=== PATIENT | female | born 1970 | race Caucasian/White ===

== ENCOUNTER → 2017-01-26 | Outpatient (CLI) | payer MEDICARE, OTHER ==
--- NOTE | 2017-01-29 09:47 | MM ---
Reason for exam: screening (asymptomatic). Last mammogram was performed 3 years and 3 months ago. Physical Findings: A clinical breast exam by your physician is recommended on an annual basis and results should be correlated with mammographic findings. MG Screening Mammo w CAD Bilateral CC and MLO view(s) were taken. Prior study comparison: November 05, 2013, bilateral MG screening mammo w CAD. The breast tissue is extremely dense which could obscure a lesion on mammography. No significant changes when compared with prior studies. ASSESSMENT: Benign, BI-RAD 2 RECOMMENDATION: Routine screening mammogram of both breasts in 1 year.
== END | disposition home or self-care (01) ==
LOC: RADMAMWWP 09:10
PROVIDERS: ATTEND Family Medicine
DX: Z12.31 Encounter for screening mammogram for malignant neoplasm of breast (principal)

== ENCOUNTER → 2018-01-30 | Outpatient (CLI) | payer MEDICARE, OTHER ==
--- NOTE | 2018-01-31 14:16 | MM ---
Reason for exam: screening (asymptomatic). Last mammogram was performed 1 year ago. Physical Findings: A clinical breast exam by your physician is recommended on an annual basis and results should be correlated with mammographic findings. MG Screening Mammo w CAD Bilateral CC and MLO view(s) were taken. Prior study comparison: January 26, 2017, bilateral MG screening mammo w CAD. November 05, 2013, bilateral MG screening mammo w CAD. The breast tissue is extremely dense which could obscure a lesion on mammography. No significant changes when compared with prior studies. ASSESSMENT: Negative, BI-RAD 1 RECOMMENDATION: Routine screening mammogram of both breasts in 1 year.
== END | disposition home or self-care (01) ==
LOC: RADMAMWWP 12:30 → EEVIPCON 12:40
PROVIDERS: ATTEND Family Medicine
DX: Z12.31 Encounter for screening mammogram for malignant neoplasm of breast (principal)
CPT/HCPCS: 77067

== ENCOUNTER 2019-08-18 08:44 | Emergency (ER) | payer MEDICARE, OTHER ==
[2019-08-18 08:53] VITALS: TEMP 99.4
[2019-08-18] MEDS ORDERED: SODIUM CHLORIDE 0.9% 1,000 ML IV STA (09:12)
[2019-08-18] MEDS ORDERED: ONDANSETRON 4 MG/2 ML VIAL IVP STA (09:12)
[2019-08-18] MEDS ORDERED: KETOROLAC 30 MG/ML 1 ML VIAL IVP STA (09:13)
--- NOTE | 2019-08-18 09:14 | ED ---
Abdominal Pain HPI - General Chief Complaint: Abdominal Pain Stated Complaint: fever, abd pain, weakness Time Seen by Provider: 08/18/19 09:00 Source: patient, family Mode of arrival: wheelchair Limitations: altered mental status - History of Present Illness Initial Comments: Patient is a 49-year-old female with history of mental retarded patient presents to emergency Department with a chief complaint of abdominal pain. Mother states she developed abdominal pain sometime yesterday. States she was complaining of sharp left flank pains and had difficulty getting in and out of the bathtub. Mother states the patient has problems with constipation and takes stool softeners. Mother states she gave the patient a laxative which helped alleviate quite a bit of stool. However, states the patient is complaining of some sharp pains. Mother does report occasional abdominal bloating but states that is usually related to her menstrual cycle. Mother denies any hematuria, hematochezia or melena. Mother states the patient is not complaining of any p ainful urination. Patient is not able to describe her localized pain. - Related Data Previous Rx's Medication Instructions Recorded Ranitidine HCl [Zantac] 150 mg PO BID #14 tab 01/11/15 Ranitidine HCl [Zantac] 150 mg PO BID #14 tablet 08/18/19 Allergies Allergy/AdvReac Type Severity Reaction Status Date / Time No Known Allergies Allergy Verified 08/18/19 08:53 Review of Systems ROS Statement: Those systems with pertinent positive or pertinent negative responses have been documented in the HPI. ROS Other: All systems not noted in ROS Statement are negative. Past Medical History Additional Past Medical History / Comment(s): mentally retarded History of Any Multi-Drug Resistant Organisms: None Reported Past Surgical History: No Surgical Hx Reported Past Psychological History: No Psychological Hx Reported Smoking Status: Never smoker Past Alcohol Use History: None Reported Past Drug Use History: None Reported General Exam Limitations: altered mental status General appearance: alert, in no apparent distress Head exam: Present: atraumatic, normocephalic, normal inspection Eye exam: Present: normal appearance (Strabismus) Pupils: Present: normal accommodation ENT exam: Present: normal exam, mucous membranes moist Neck exam: Present: normal inspection, full ROM Respiratory exam: Present: normal lung sounds bilaterally Cardiovascular Exam: Present: regular rate, normal rhythm, normal heart sounds GI/Abdominal exam: Present: soft, tenderness (Left flank region, luq), normal bowel sounds. Absent: distended, guarding, rebound Extremities exam: Present: normal inspection, normal capillary refill, other (+2 ulnar and radial pulses bilaterally.) Back exam: Present: normal inspection, full ROM, tenderness, CVA tenderness (L) Neurological exam: Present: alert, oriented X3 Psychiatric exam: Present: normal affect (Mental retardation) Skin exam: Present: warm, dry, intact, normal color Course Vital Signs 08/18/19 08/18/19 08:50 10:28 Temperature 99.4 F Pulse Rate 138 H 76 Respiratory 18 16 Rate Blood Pressure 138/104 119/76 O2 Sat by Pulse 100 Oximetry Medical Decision Making - Medical Decision Making Patient is a 49-year-old female with history of mental rotation presents emergency [facility] chief complaint of abdominal pain. Mother present as a history. On exam patient does have some left lower quadrant left flank pain along with left CVA tenderness. Difficult to elicit a thorough physical examination due to patient's condition. CBC CMP and UA are unremarkable. CT of abdomen and pelvis obtained showing moderate bladder wall thickening but it does not correlate for cystitis considering patient is not symptomatic according to the mother. UA shows no signs of urinary tract infections. UA culture pending. Patient does have left sided colonic diverticulosis which is expected considering she has recurrent bouts of constipation. I suspect the patient has good. She does of occasional bloating which the mom suspects is usually related to her menstrual cycle. Patient will be treated with a seven-day course of antacids. Return parameters were thoroughly discussed mother was understanding and agreeable. She was advised to follow primary care. Case discussed with physician. - Lab Data Result diagrams: 08/18/19 09:00 08/18/19 09:00 Lab Results 08/18/19 08/18/19 08/18/19 Range/Units 09:00 09:00 09:15 WBC 9.1 (3.8-10.6) k/uL RBC 4.64 (3.80-5.40) m/uL Hgb 13.5 (11.4-16.0) gm/dL Hct 41.4 (34.0-46.0) % MCV 89.4 (80.0-100.0) fL MCH 29.0 (25.0-35.0) pg MCHC 32.5 (31.0-37.0) g/dL RDW 12.8 (11.5-15.5) % Plt Count 323 (150-450) k/uL Neutrophils % 83 % Lymphocytes % 12 % Monocytes % 4 % Eosinophils % 1 % Basophils % 0 % Neutrophils # 7.5 (1.3-7.7) k/uL Lymphocytes # 1.1 (1.0-4.8) k/uL Monocytes # 0.3 (0-1.0) k/uL Eosinophils # 0.1 (0-0.7) k/uL Basophils # 0.0 (0-0.2) k/uL Sodium 137 (137-145) mmol/L Potassium 4.3 (3.5-5.1) mmol/L Chloride 108 H (98-107) mmol/L Carbon Dioxide 17 L (22-30) mmol/L Anion Gap 12 mmol/L BUN 13 (7-17) mg/dL Creatinine 0.74 (0.52-1.04) mg/dL Est GFR (CKD-EPI)AfAm >90 (>60 ml/min/1.73 sqM) Est GFR (CKD-EPI)NonAf >90 (>60 ml/min/1.73 sqM) Glucose 111 H (74-99) mg/dL Calcium 9.6 (8.4-10.2) mg/dL Total Bilirubin 0.6 (0.2-1.3) mg/dL AST 27 (14-36) U/L ALT 18 (4-34) U/L Alkaline Phosphatase 82 (38-126) U/L Total Protein 8.3 H (6.3-8.2) g/dL Albumin 4.6 (3.5-5.0) g/dL Amylase 56 (30-110) U/L Lipase 82 (23-300) U/L Urine Color Yellow Urine Appearance Cloudy H (Clear) Urine pH 5.5 (5.0-8.0) Ur Specific [place] 1.019 (1.001-1.035) Urine Protein Negative (Negative) Urine Glucose (UA) Negative (Negative) Urine Ketones 1+ H (Negative) Urine Blood Negative (Negative) Urine Nitrite Negative (Negative) Urine Bilirubin Negative (Negative) Urine Urobilinogen <2.0 (<2.0) mg/dL Ur Leukocyte Esterase Negative (Negative) Urine RBC 2 (0-5) /hpf Urine WBC 2 (0-5) /hpf Ur Squamous Epith Cells 12 H (0-4) /hpf Urine Mucus Few H (None) /hpf Disposition Clinical Impression: Abdominal pain, Abdominal bloating Disposition: HOME SELF-CARE Condition: Stable Instructions (If sedation given, give patient instructions): Abdominal Pain (ED) Additional Instructions: Please take prescribed medication as directed. Follow-up with primary care. Return to emergency department if symptoms worsen. Prescriptions: Ranitidine HCl [Zantac] 150 mg PO BID #14 tablet Is patient prescribed a controlled substance at d/c from ED?: No Referrals: Jt Quinteros DO [Primary Care Provider] - 1-2 days Time of Disposition: 11:57
[2019-08-18 10:03] LABS: ALT 18 U/L (4-34); African American GFR (CKD) >90 (>60 ml/min/1.73 sqM); Albumin 4.6 g/dL (3.5-5.0); Amylase 56 U/L (30-110); Anion Gap 12 mmol/L; Blood Urea Nitrogen 13 mg/dL (7-17); Calcium 9.6 mg/dL (8.4-10.2); Carbon Dioxide 17 mmol/L (22-30); Chloride 108 mmol/L (98-107); Glucose 111 mg/dL (74-99); Non-African American GFR(CKD) >90 (>60 ml/min/1.73 sqM); Sodium 137 mmol/L (137-145); Total Bilirubin 0.6 mg/dL (0.2-1.3); Total Protein 8.3 g/dL (6.3-8.2)
[2019-08-18 10:07] LABS: AST 27 U/L (14-36); Alkaline Phosphatase 82 U/L (38-126); Potassium 4.3 mmol/L (3.5-5.1)
[2019-08-18 10:20] LABS: Basophils % (A) 0 %; Eosinophils # (A) 0.1 k/uL (0-0.7); Eosinophils % (A) 1 %; HCT 41.4 % (34.0-46.0); HGB 13.5 gm/dL (11.4-16.0); Lymphocytes # (A) 1.1 k/uL (1.0-4.8); Lymphocytes % (A) 12 %; MCHC 32.5 g/dL (31.0-37.0); MCV 89.4 fL (80.0-100.0); Mean Platelet Volume 7.5; Monocytes # (A) 0.3 k/uL (0-1.0); Monocytes % (A) 4 %; Neutrophils # (A) 7.5 k/uL (1.3-7.7); Neutrophils % (A) 83 %; Platelet Count 323 k/uL (150-450); RBC 4.64 m/uL (3.80-5.40); RDW 12.8 % (11.5-15.5); WBC 9.1 k/uL (3.8-10.6)
[2019-08-18 10:29] VITALS: PULSE 76; RESP 16
[2019-08-18 11:03] LABS: Appearance,Urine Cloudy (Clear); Bilirubin,Urine Negative (Negative); Blood,Urine Negative (Negative); Color,Urine Yellow; Glucose,Urine (UA) Negative (Negative); Ketones,Urine 1+ (Negative); Leukocyte Esterase,Urine Negative (Negative); Mucus,Urine Few /hpf; Nitrite,Urine Negative (Negative); PH, Urine 5.5 (5.0-8.0); Protein,Urine Negative (Negative); RBC,Urine 2 /hpf (0-5); Specific Gravity,Urine 1.019 (1.001-1.035); Squamous Epithelial Cell,Urine 12 /hpf (0-4); Urobilinogen,Urine <2.0 mg/dL (<2.0); WBC,Urine 2 /hpf (0-5)
--- NOTE | 2019-08-18 11:11 | CT ---
EXAMINATION TYPE: CT abdomen pelvis w con DATE OF EXAM: 08/18/2019 COMPARISON: 01/11/2015 HISTORY: 49-year-old female with Left lower quadrant pain. TECHNIQUE: Contiguous axial scanning of the abdomen and pelvis following administration of 100 ml Iso farzad 300 IV contrast. Delayed images through the kidneys and coronal/sagittal reconstructions perform ed. CT DLP: 701.8 mGycm Automated exposure control for dose reduction was used. FINDINGS: Heart normal size without pericardial effusion. Breathing motion artifact at the lung bases. No pleur al effusion. A new 1.0 cm hypodensity mid liver, likely cyst. A couple tiny cysts in the right liver lobe are unch anged. Portal venous system is patent. No biliary ductal dilatation. Gallbladder, adrenal glands, left kidney, spleen, and pancreas appear within normal limits. Stable 6 mm cortical cyst lower pole right kidney. No dilated small bowel, free fluid, or free air. Scattered nonenlarged mesenteric lymph nodes. No mes enteric or retroperitoneal lymphadenopathy. Normal appendix. High riding cecum. No significant stool burden. Left-sided colonic diverticulosis, g reatest in the sigmoid colon. No perisplenic inflammatory change seen. Moderate circumferential bladder wall thickening with mild perivesicular fat stranding. Uterus anteve rted with arcuate configuration. Both ovaries were visualized. A 1.4 cm dominant follicle or function al cyst of the left ovary. Trace cul-de-sac free fluid likely physiologic. No pelvic lymphadenopathy seen. 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 No osseous destructive process . IMPRESSION: 1. Moderate bladder wall thickening. Suggestion of mild surrounding inflammation. Correlate for cysti tis. 2. Left-sided colonic diverticulosis, greatest in the sigmoid colon. No convincing evidence for acute diverticulitis at this time. 3. Trace cul-de-sac free fluid likely physiologic.
[2019-08-18 12:15] VITALS: BP 132/76
== END 2019-08-18 12:13 | disposition home or self-care (01) ==
LOC: EC 08:44
DX: K57.90 Diverticulosis of intestine, part unspecified, without perforation or abscess without bleeding (principal); K59.00 Constipation, unspecified; R53.1 Weakness
CPT/HCPCS: 36415; 80053; 82150; 83690; 85025; 81001; 74177; 99284; 96374; 96375; 96361; J2405; J1885; Q9967

== ENCOUNTER 2021-04-30 10:16 | Emergency (ER) | payer MEDICARE, OTHER ==
[2021-04-30 10:27] VITALS: RESP 16; TEMP 98.5
[2021-04-30] MEDS ORDERED: SODIUM CHLORIDE 0.9% 1,000 ML IV ONE (11:24)
[2021-04-30 12:11] LABS: Basophils % (A) 0 %; Eosinophils # (A) 0.1 k/uL (0-0.7); Eosinophils % (A) 1 %; HCT 40.2 % (34.0-46.0); HGB 13.5 gm/dL (11.4-16.0); Lymphocytes # (A) 0.9 k/uL (1.0-4.8); Lymphocytes % (A) 7 %; MCH 30.4 pg (25.0-35.0); MCHC 33.7 g/dL (31.0-37.0); MCV 90.2 fL (80.0-100.0); Mean Platelet Volume 7.5; Monocytes # (A) 0.6 k/uL (0-1.0); Monocytes % (A) 4 %; Neutrophils # (A) 11.3 k/uL (1.3-7.7); Neutrophils % (A) 87 %; Platelet Count 454 k/uL (150-450); RBC 4.46 m/uL (3.80-5.40); RDW 13.2 % (11.5-15.5)
--- NOTE | 2021-04-30 12:13 | CT ---
EXAMINATION TYPE: CT brain wo con DATE OF EXAM: 04/30/2021 COMPARISON: None HISTORY: 51-year-old female confusion, Altered mental status TECHNIQUE: Examination was done in axial plane without intravenous contrast. Coronal and sagittal r econstructions performed. CT DLP: 1261.4 mGycm Automated exposure control for dose reduction was used. FINDINGS: There is no evidence of acute intracranial hemorrhage, acute ischemic changes, mass, mass-effect, or extra-axial fluid collection. There is no effacement of cerebral sulci or basal subarachnoid cister ns. There is no hydrocephalus. There is no midline shift. Paredes-white matter distinction is preserv ed. The patient appears to be myopic. Cerumen left external auditory canal. Paranasal sinuses and mastoid air cells are well pneumatized. IMPRESSION: No acute intracranial abnormality seen.
--- NOTE | 2021-04-30 12:16 | XR ---
EXAMINATION TYPE: XR chest 2V DATE OF EXAM: 04/30/2021 COMPARISON: None HISTORY: 51-year-old female confusion, altered mental status TECHNIQUE: AP and lateral views FINDINGS: Heart borderline enlarged. Mild hyperinflation. Some focal patchy posterior basilar opacity on the la teral view. No other consolidation or pleural effusion seen. IMPRESSION: 1. Borderline heart size. 2. Some focal atelectasis versus early infiltrate posterior base on the lateral view.
[2021-04-30 12:23] LABS: Partial Thromboplastin Time 22.6 sec (22.0-30.0); Prothrombin Time 10.8 sec (9.0-12.0)
[2021-04-30 12:28] LABS: Albumin 5.2 g/dL (3.5-5.0); Calcium 10.4 mg/dL (8.4-10.2); Potassium 3.9 mmol/L (3.5-5.1); Total Bilirubin 0.6 mg/dL (0.2-1.3); Total Protein 8.7 g/dL (6.3-8.2)
--- NOTE | 2021-04-30 13:33 | ED ---
Altered Mental Status HPI - General Chief Complaint: Altered Mental Status Stated Complaint: not acting right Time Seen by Provider: 04/30/21 11:12 Source: patient, family, RN notes reviewed Mode of arrival: ambulatory Limitations: no limitations - History of Present Illness Initial Comments: Patient is a 51-year-old female that presents to the emergency department with caretaker grounds who notes that she started her vessel cycle this morning and has been confused for the past several days. Patient was otherwise a well-appearing while sitting up in bed interacting while during the exam and interview. Programmable Logic Controller Assembler notes that she is also complaining of mouth pain. Patient was able to answer questions appropriately. Programmable Logic Controller Assembler notes that patient is at her baseline mental status in the ER. Programmable Logic Controller Assembler notes that he was concerned for possible urinary tract infection at this time. Patient denied any chest pain shortness of breath headache nausea vomiting diarrhea constipation fever fatigue chills. - Related Data Home Medications Medication Instructions Recorded Confirmed Cholecalciferol [Vitamin D3 (25 25 mcg PO DAILY 04/30/21 04/30/21 Mcg = 1000 Iu)] Docusate [Colace] 200 mg PO DAILY 04/30/21 04/30/21 Previous Rx's Medication Instructions Recorded Cephalexin [Keflex] 500 mg PO Q6HR #40 cap 04/30/21 traZODone HCL [Desyrel] 50 mg PO HS 5 Days #5 tab 04/30/21 Allergies Allergy/AdvReac Type Severity Reaction Status Date / Time No Known Allergies Allergy Verified 04/30/21 12:10 Review of Systems ROS Statement: Those systems with pertinent positive or pertinent negative responses have been documented in the HPI. ROS Other: All systems not noted in ROS Statement are negative. Past Medical History Additional Past Medical History / Comment(s): mentally retarded History of Any Multi-Drug Resistant Organisms: None Reported Past Surgical History: No Surgical Hx Reported Past Psychological History: No Psychological Hx Reported Smoking Status: Never smoker Past Alcohol Use History: None Reported Past Drug Use History: None Reported General Exam Limitations: no limitations General appearance: alert, in no apparent distress Head exam: Present: atraumatic, normocephalic, normal inspection Eye exam: Present: normal appearance, PERRL, EOMI. Absent: scleral icterus, conjunctival injection, periorbital swelling ENT exam: Present: normal exam, mucous membranes moist Neck exam: Present: normal inspection Respiratory exam: Present: normal lung sounds bilaterally. Absent: respiratory distress, wheezes, rales, rhonchi, stridor Cardiovascular Exam: Present: regular rate, normal rhythm, normal heart sounds. Absent: systolic murmur, diastolic murmur, rubs, gallop, clicks GI/Abdominal exam: Present: soft, normal bowel sounds. Absent: distended, tenderness, guarding, rebound, rigid Extremities exam: Present: normal inspection, full ROM, normal capillary refill. Absent: tenderness, pedal edema, joint swelling, calf tenderness Neurological exam: Present: alert, oriented X3, other (Unable to do full neurological exam due to patient's mental state.) Psychiatric exam: Present: normal affect, normal mood Skin exam: Present: warm, dry, intact, normal color. Absent: rash Course Vital Signs 04/30/21 10:25 Temperature 98.5 F Pulse Rate 118 H Respiratory 16 Rate Blood Pressure 101/71 O2 Sat by Pulse 99 Oximetry Medical Decision Making - Medical Decision Making 51-year-old female presenting with caretaker grounds stating that she has been confused and started her menstrual cycle this morning. Labs, EKG, bone plant supervisor, chest x-ray, CT of the brain, 1 L normal saline ordered. Labs: Unremarkable, shows dehydration pattern. Urinalysis shows many red cells and 11 white blood cells. 1 g Rocephin ordered. Antibiotics sent to pharmacy. Patient's caretaker grounds requesting insomnia medication as patient throughout the night. Trazodone sent to pharmacy. Case discussed with Dr. Valdez, patient discharge home. - Lab Data Result diagrams: 04/30/21 11:59 04/30/21 11:59 Lab Results 04/30/21 04/30/21 04/30/21 Range/Units 11:59 11:59 11:59 WBC 13.0 H (3.8-10.6) k/uL RBC 4.46 (3.80-5.40) m/uL Hgb 13.5 (11.4-16.0) gm/dL Hct 40.2 (34.0-46.0) % MCV 90.2 (80.0-100.0) fL MCH 30.4 (25.0-35.0) pg MCHC 33.7 (31.0-37.0) g/dL RDW 13.2 (11.5-15.5) % Plt Count 454 H (150-450) k/uL MPV 7.5 Neutrophils % 87 % Lymphocytes % 7 % Monocytes % 4 % Eosinophils % 1 % Basophils % 0 % Neutrophils # 11.3 H (1.3-7.7) k/uL Lymphocytes # 0.9 L (1.0-4.8) k/uL Monocytes # 0.6 (0-1.0) k/uL Eosinophils # 0.1 (0-0.7) k/uL Basophils # 0.0 (0-0.2) k/uL PT 10.8 (9.0-12.0) sec INR 1.0 (<1.2) APTT 22.6 (22.0-30.0) sec Sodium 144 (137-145) mmol/L Potassium 3.9 (3.5-5.1) mmol/L Chloride 109 H (98-107) mmol/L Carbon Dioxide 19 L (22-30) mmol/L Anion Gap 16 mmol/L BUN 28 H (7-17) mg/dL Creatinine 1.01 (0.52-1.04) mg/dL Est GFR (CKD-EPI)AfAm 75 (>60 ml/min/1.73 sqM) Est GFR (CKD-EPI)NonAf 65 (>60 ml/min/1.73 sqM) Glucose 114 H (74-99) mg/dL Calcium 10.4 H (8.4-10.2) mg/dL Total Bilirubin 0.6 (0.2-1.3) mg/dL AST 37 H (14-36) U/L ALT 19 (4-34) U/L Alkaline Phosphatase 92 (38-126) U/L Troponin I (0.000-0.034) ng/mL Total Protein 8.7 H (6.3-8.2) g/dL Albumin 5.2 H (3.5-5.0) g/dL Urine Color Urine Appearance (Clear) Urine pH (5.0-8.0) Ur Specific [place] (1.001-1.035) Urine Protein (Negative) Urine Glucose (UA) (Negative) Urine Ketones (Negative) Urine Blood (Negative) Urine Nitrite (Negative) Urine Bilirubin (Negative) Urine Urobilinogen (<2.0) mg/dL Ur Leukocyte Esterase (Negative) Urine RBC (0-5) /hpf Urine WBC (0-5) /hpf Ur Squamous Epith Cells (0-4) /hpf Amorphous Sediment (None) /hpf Urine Bacteria (None) /hpf Hyaline Casts (0-2) /lpf Urine Mucus (None) /hpf Urine Opiates Screen (NotDetected) Ur Oxycodone Screen (NotDetected) Urine Methadone Screen (NotDetected) Ur Propoxyphene Screen (NotDetected) Ur Barbiturates Screen (NotDetected) U Tricyclic Antidepress (NotDetected) Ur Phencyclidine Scrn (NotDetected) Ur Amphetamines Screen (NotDetected) U Methamphetamines Scrn (NotDetected) U Benzodiazepines Scrn (NotDetected) Urine Cocaine Screen (NotDetected) U Marijuana (THC) Screen (NotDetected) 04/30/21 04/30/21 Range/Units 11:59 12:50 WBC (3.8-10.6) k/uL RBC (3.80-5.40) m/uL Hgb (11.4-16.0) gm/dL Hct (34.0-46.0) % MCV (80.0-100.0) fL MCH (25.0-35.0) pg MCHC (31.0-37.0) g/dL RDW (11.5-15.5) % Plt Count (150-450) k/uL MPV Neutrophils % % Lymphocytes % % Monocytes % % Eosinophils % % Basophils % % Neutrophils # (1.3-7.7) k/uL Lymphocytes # (1.0-4.8) k/uL Monocytes # (0-1.0) k/uL Eosinophils # (0-0.7) k/uL Basophils # (0-0.2) k/uL PT (9.0-12.0) sec INR (<1.2) APTT (22.0-30.0) sec Sodium (137-145) mmol/L Potassium (3.5-5.1) mmol/L Chloride (98-107) mmol/L Carbon Dioxide (22-30) mmol/L Anion Gap mmol/L BUN (7-17) mg/dL Creatinine (0.52-1.04) mg/dL Est GFR (CKD-EPI)AfAm (>60 ml/min/1.73 sqM) Est GFR (CKD-EPI)NonAf (>60 ml/min/1.73 sqM) Glucose (74-99) mg/dL Calcium (8.4-10.2) mg/dL Total Bilirubin (0.2-1.3) mg/dL AST (14-36) U/L ALT (4-34) U/L Alkaline Phosphatase (38-126) U/L Troponin I <0.012 (0.000-0.034) ng/mL Total Protein (6.3-8.2) g/dL Albumin (3.5-5.0) g/dL Urine Color Yellow Urine Appearance Clear (Clear) Urine pH 5.0 (5.0-8.0) Ur Specific [place] 1.028 (1.001-1.035) Urine Protein 1+ H (Negative) Urine Glucose (UA) Negative (Negative) Urine Ketones 2+ H (Negative) Urine Blood Large H (Negative) Urine Nitrite Negative (Negative) Urine Bilirubin Negative (Negative) Urine Urobilinogen <2.0 (<2.0) mg/dL Ur Leukocyte Esterase Negative (Negative) Urine RBC >182 H (0-5) /hpf Urine WBC 11 H (0-5) /hpf Ur Squamous Epith Cells 1 (0-4) /hpf Amorphous Sediment Rare H (None) /hpf Urine Bacteria Rare H (None) /hpf Hyaline Casts 1 (0-2) /lpf Urine Mucus Occasional H (None) /hpf Urine Opiates Screen Not Detected (NotDetected) Ur Oxycodone Screen Not Detected (NotDetected) Urine Methadone Screen Not Detected (NotDetected) Ur Propoxyphene Screen Not Detected (NotDetected) Ur Barbiturates Screen Not Detected (NotDetected) U Tricyclic Antidepress Not Detected (NotDetected) Ur Phencyclidine Scrn Not Detected (NotDetected) Ur Amphetamines Screen Not Detected (NotDetected) U Methamphetamines Scrn Not Detected (NotDetected) U Benzodiazepines Scrn Not Detected (NotDetected) Urine Cocaine Screen Not Detected (NotDetected) U Marijuana (THC) Screen Not Detected (NotDetected) - EKG Data -: EKG Interpreted by Me EKG shows normal: sinus rhythm Rate: tachycardia EKG Comments: Ventricular rate of 104 bpm, MI interval 120 ms, QRS duration of 108 ms, QTC 483 ms, PRT axes 52/-24/56, sinus tachycardia, possible left atrial enlargement, incomplete right bundle branch block, borderline ECG. - Radiology Data Radiology results: report reviewed, image reviewed Chest x-ray: Borderline heart size. Some focal atelectasis versus early infiltrate posterior base on the lateral view. CT of the brain: No acute intracranial abnormality seen. Disposition Clinical Impression: Urinary tract infection Disposition: HOME SELF-CARE Condition: Stable Instructions (If sedation given, give patient instructions): Urinary Tract Infection in Women (ED) Additional Instructions: Please return to the Emergency Department if symptoms worsen or any other concerns. Follow-up with primary care 1-2 days. Again and buttocks as prescribed. Prescriptions: traZODone HCL [Desyrel] 50 mg PO HS 5 Days #5 tab Cephalexin [Keflex] 500 mg PO Q6HR #40 cap Is patient prescribed a controlled substance at d/c from ED?: No Referrals: Jt Quinteros DO [Primary Care Provider] - 1-2 days Time of Disposition: 14:23
[2021-04-30 13:38] LABS: Amorphous Sediment,Urine Rare /hpf; Appearance,Urine Clear (Clear); Bacteria,Urine Rare /hpf; Bilirubin,Urine Negative (Negative); Blood,Urine Large (Negative); Color,Urine Yellow; Glucose,Urine (UA) Negative (Negative); Hyaline Casts,Urine 1 /lpf (0-2); Ketones,Urine 2+ (Negative); Leukocyte Esterase,Urine Negative (Negative); Mucus,Urine Occasional /hpf; Nitrite,Urine Negative (Negative); Protein,Urine 1+ (Negative); RBC,Urine >182 /hpf (0-5); Specific Gravity,Urine 1.028 (1.001-1.035); Squamous Epithelial Cell,Urine 1 /hpf (0-4); Urobilinogen,Urine <2.0 mg/dL (<2.0); WBC,Urine 11 /hpf (0-5)
[2021-04-30 13:40] LABS: Phencyclidine Screen,Urine Not Detected (NotDetected); Urn Cannabinoid Scrn Not Detected (NotDetected)
[2021-04-30 13:41] LABS: Amphetamine Screen,Urine Not Detected (NotDetected); Barbiturate Screen,Urine Not Detected (NotDetected); Benzodiazepines Screen,Urine Not Detected (NotDetected); Cocaine Screen,Urine Not Detected (NotDetected); Methadone Screen, Urine Not Detected (NotDetected); Opiate Screen,Urine Not Detected (NotDetected); Oxycodone Screen, Urine Not Detected (NotDetected); Tricyclic Antidepressant,Urine Not Detected (NotDetected)
[2021-04-30] MEDS ORDERED: cefTRIAXone IN SWFI 1,000 MG/10 ML SYRINGE IVP STA (13:46)
[2021-04-30 15:04] VITALS: BP 102/65; PULSE 82
== END 2021-04-30 15:04 | disposition home or self-care (01) ==
LOC: EC 10:16 → EEVIPCON 10:16 → EC 15:04
DX: N39.0 Urinary tract infection, site not specified (principal)
CPT/HCPCS: 36415; 93005; 80053; 84484; 85025; 85610; 85730; 81001; 80306; 87086; 71046; 70450; 99285; 96374; 96361; J0696

== ENCOUNTER 2021-06-16 14:27 | Emergency (ER) | payer MEDICARE, OTHER ==
[2021-06-16] MEDS ORDERED: SODIUM CHLORIDE 0.9% 1,000 ML IV ONE ×2 (16:39→18:58)
[2021-06-16] MEDS ORDERED: ONDANSETRON 4 MG/2 ML VIAL IVP STA (16:39)
--- NOTE | 2021-06-16 17:03 | ED ---
Abdominal Pain HPI - General Source: patient, family Mode of arrival: ambulatory Limitations: no limitations <Jovana Costello - Last Filed: 06/16/21 21:19> <Annette Hylton - Last Filed: 06/17/21 00:33> - General Chief Complaint: Abdominal Pain Stated Complaint: Abd pain, not eating Time Seen by Provider: 06/16/21 16:32 - History of Present Illness Initial Comments: 51-year-old female patient with development of delay presents to the emergency department with father for evaluation of abdominal pain, vomiting, lack of appetite. Symptoms have been present for the last 3 days. She reports lower abdominal pain. Father denies any diarrhea. Denies any fever or chills. He is concerned she may have sore throat. He denies any nasal congestion or cough. She has not had any previous abdominal surgeries. She was seen at urgent care and started on antibiotic which she is refusing to take the antibiotic. Patient denies any recent rash, shortness of breath, chest pain, back pain, hematuria, dysuria, urinary urgency, urinary frequency, headache, or any other complaints. (Jovana Costello) - Related Data Home Medications Medication Instructions Recorded Confirmed Cholecalciferol [Vitamin D3 (25 25 mcg PO DAILY 04/30/21 06/16/21 Mcg = 1000 Iu)] Docusate [Colace] 200 mg PO DAILY 04/30/21 06/16/21 Amoxicillin 875 mg PO BID 06/16/21 06/16/21 Cranberry Fruit Extract [Cranberry] 500 mg PO DAILY 06/16/21 06/16/21 methylPREDNISolone [Medrol Dose See Taper PO DIRECTED 06/16/21 06/16/21 Pack] Previous Rx's Medication Instructions Recorded Ondansetron [Zofran ODT] 4 mg PO Q8HR PRN #10 tab 06/16/21 Allergies Allergy/AdvReac Type Severity Reaction Status Date / Time No Known Allergies Allergy Verified 06/16/21 18:41 Review of Systems ROS Other: All systems not noted in ROS Statement are negative. <Jovana Costello - Last Filed: 06/16/21 21:19> ROS Other: All systems not noted in ROS Statement are negative. <Annette Hylton - Last Filed: 06/17/21 00:33> ROS Statement: Those systems with pertinent positive or pertinent negative responses have been documented in the HPI. Past Medical History Additional Past Medical History / Comment(s): mentally handicapped History of Any Multi-Drug Resistant Organisms: None Reported Past Surgical History: No Surgical Hx Reported Past Psychological History: No Psychological Hx Reported Smoking Status: Never smoker Past Alcohol Use History: None Reported Past Drug Use History: None Reported <Jovana Costello - Last Filed: 06/16/21 21:19> General Exam Limitations: no limitations General appearance: alert, in no apparent distress, other (This is a well- developed, well-nourished adult) ENT exam: Present: normal exam, normal oropharynx, mucous membranes moist, TM's normal bilaterally Respiratory exam: Present: normal lung sounds bilaterally. Absent: respiratory distress, wheezes, rales, rhonchi, stridor Cardiovascular Exam: Present: normal rhythm, tachycardia, normal heart sounds. Absent: systolic murmur, diastolic murmur, rubs, gallop, clicks GI/Abdominal exam: Present: soft, tenderness (Lower abdominal), normal bowel sounds. Absent: distended, guarding, rebound, rigid Neurological exam: Present: alert, oriented X3, CN II-XII intact Psychiatric exam: Present: normal affect, normal mood Skin exam: Present: warm, dry, intact, normal color. Absent: rash <Jovana Costello - Last Filed: 06/16/21 21:19> Course Vital Signs 06/16/21 06/16/21 06/16/21 15:03 18:57 21:16 Temperature 97.6 F 98 F 98.3 F Pulse Rate 124 H 117 H 98 Respiratory 20 18 16 Rate Blood Pressure 141/77 127/84 124/80 O2 Sat by Pulse 98 99 97 Oximetry Medical Decision Making - Lab Data Result diagrams: 06/16/21 16:59 06/16/21 16:59 - Radiology Data Radiology results: report reviewed, image reviewed <Jovana Costello - Last Filed: 06/16/21 21:19> - Lab Data Result diagrams: 06/16/21 16:59 06/16/21 16:59 <Annette Hylton - Last Filed: 06/17/21 00:33> - Medical Decision Making 51-year-old female patient with past history significant for developmental delay, is verbal but poor communication regarding symptoms. Physical examination reveals soft abdomen, tenderness reported over the suprapubic mary on. Initial vital signs showed elevated heart rate. Labs reviewed and revealed normal white blood cell count with elevated neutrophils at 8.1. PCO2 and a VBG was 33, HCO3 19. Her chloride was 108, carbon dioxide 15, BUN 24. Anion gap 20. Urinalysis showed 3+ ketones, trace blood. COVID-[address] abdomen and pelvis was negative. We did give 2 L of IV fluids and Zofran. She is tolerating oral intake in the department without difficulty. I did discuss findings and results with her father. Symptoms are consistent with significant dehydration. She'll be discharged home to increase fluids and to rest. I did send Zofran together pharmacy. Return parameters were discussed in detail. Parent verbalizes understanding and agrees with this plan. My attending is Dr. Hylton. (Jovana Costello) I was available for consultation in the emergency department. The history and physical exam were done by the midlevel provider. I was consulted for this patie nts care. I reviewed the case with the midlevel provider and based on their presentation of the patient, I agree with the assessment, medical decision making and plan of care as documented. (Annette Hylton) - Lab Data Lab Results 06/16/21 06/16/21 06/16/21 Range/Units 15:10 16:59 16:59 WBC 10.4 (3.8-10.6) k/uL RBC 4.87 (3.80-5.40) m/uL Hgb 15.0 (11.4-16.0) gm/dL Hct 45.7 (34.0-46.0) % MCV 93.8 (80.0-100.0) fL MCH 30.9 (25.0-35.0) pg MCHC 32.9 (31.0-37.0) g/dL RDW 12.7 (11.5-15.5) % Plt Count 340 (150-450) k/uL MPV 7.9 Neutrophils % 78 % Lymphocytes % 16 % Monocytes % 4 % Eosinophils % 1 % Basophils % 0 % Neutrophils # 8.1 H (1.3-7.7) k/uL Lymphocytes # 1.6 (1.0-4.8) k/uL Monocytes # 0.5 (0-1.0) k/uL Eosinophils # 0.1 (0-0.7) k/uL Basophils # 0.0 (0-0.2) k/uL VBG pH (7.31-7.41) VBG pCO2 (37-51) mmHg VBG HCO3 (24-28) mmol/L Sodium 143 (137-145) mmol/L Potassium 3.9 (3.5-5.1) mmol/L Chloride 108 H (98-107) mmol/L Carbon Dioxide 15 L (22-30) mmol/L Anion Gap 20 mmol/L BUN 24 H (7-17) mg/dL Creatinine 0.71 (0.52-1.04) mg/dL Est GFR (CKD-EPI)AfAm >90 (>60 ml/min/1.73 sqM) Est GFR (CKD-EPI)NonAf >90 (>60 ml/min/1.73 sqM) Glucose 102 H (74-99) mg/dL Plasma Lactic Acid Don (0.7-2.0) mmol/L Calcium 10.2 (8.4-10.2) mg/dL Total Bilirubin 0.7 (0.2-1.3) mg/dL AST 21 (14-36) U/L ALT 22 (4-34) U/L Alkaline Phosphatase 78 (38-126) U/L Total Protein 8.8 H (6.3-8.2) g/dL Albumin 5.3 H (3.5-5.0) g/dL Lipase 71 (23-300) U/L Urine Color Urine Appearance (Clear) Urine pH (5.0-8.0) Ur Specific [place] (1.001-1.035) Urine Protein (Negative) Urine Glucose (UA) (Negative) Urine Ketones (Negative) Urine Blood (Negative) Urine Nitrite (Negative) Urine Bilirubin (Negative) Urine Urobilinogen (<2.0) mg/dL Ur Leukocyte Esterase (Negative) Urine RBC (0-5) /hpf Urine WBC (0-5) /hpf Ur Squamous Epith Cells (0-4) /hpf Urine Mucus (None) /hpf Coronavirus (PCR) Not Detected (Not Detectd) 06/16/21 06/16/21 06/16/21 Range/Units 16:59 18:11 20:18 WBC (3.8-10.6) k/uL RBC (3.80-5.40) m/uL Hgb (11.4-16.0) gm/dL Hct (34.0-46.0) % MCV (80.0-100.0) fL MCH (25.0-35.0) pg MCHC (31.0-37.0) g/dL RDW (11.5-15.5) % Plt Count (150-450) k/uL MPV Neutrophils % % Lymphocytes % % Monocytes % % Eosinophils % % Basophils % % Neutrophils # (1.3-7.7) k/uL Lymphocytes # (1.0-4.8) k/uL Monocytes # (0-1.0) k/uL Eosinophils # (0-0.7) k/uL Basophils # (0-0.2) k/uL VBG pH 7.37 (7.31-7.41) VBG pCO2 33 L (37-51) mmHg VBG HCO3 19 L (24-28) mmol/L Sodium (137-145) mmol/L Potassium (3.5-5.1) mmol/L Chloride (98-107) mmol/L Carbon Dioxide (22-30) mmol/L Anion Gap mmol/L BUN (7-17) mg/dL Creatinine (0.52-1.04) mg/dL Est GFR (CKD-EPI)AfAm (>60 ml/min/1.73 sqM) Est GFR (CKD-EPI)NonAf (>60 ml/min/1.73 sqM) Glucose (74-99) mg/dL Plasma Lactic Acid Don 1.6 (0.7-2.0) mmol/L Calcium (8.4-10.2) mg/dL Total Bilirubin (0.2-1.3) mg/dL AST (14-36) U/L ALT (4-34) U/L Alkaline Phosphatase (38-126) U/L Total Protein (6.3-8.2) g/dL Albumin (3.5-5.0) g/dL Lipase (23-300) U/L Urine Color Yellow Urine Appearance Clear (Clear) Urine pH 5.5 (5.0-8.0) Ur Specific [place] >1.050 H (1.001-1.035) Urine Protein 1+ H (Negative) Urine Glucose (UA) Negative (Negative) Urine Ketones 3+ H (Negative) Urine Blood Trace H (Negative) Urine Nitrite Negative (Negative) Urine Bilirubin Negative (Negative) Urine Urobilinogen <2.0 (<2.0) mg/dL Ur Leukocyte Esterase Negative (Negative) Urine RBC 1 (0-5) /hpf Urine WBC 2 (0-5) /hpf Ur Squamous Epith Cells 5 H (0-4) /hpf Urine Mucus Rare H (None) /hpf Coronavirus (PCR) (Not Detectd) - Radiology Data CT abdomen and pelvis is obtained. Report was reviewed in its entirety. Impression by Dr. Goel shows a 13 mm right ovarian cyst. Incidental 15 mm right breast cystic lesion. Recommend clinical and dedicated imaging correlation as indicated. Otherwise no acute abnormality. Stable hepatic and right renal cyst. (Jovana Costello) Disposition Is patient prescribed a controlled substance at d/c from ED?: No Time of Disposition: 20:59 <Jovana Costello - Last Filed: 06/16/21 21:19> <Annette Hylton - Last Filed: 06/17/21 00:33> Clinical Impression: Dehydration, Abdominal pain Disposition: HOME SELF-CARE Condition: Good Instructions (If sedation given, give patient instructions): Dehydration (ED), Abdominal Pain (ED) Additional Instructions: Increase fluids. Take medications as needed. Follow-up the primary care physician for recheck in 1-2 days. Return for any new, worsening, or concerning symptoms. Prescriptions: Ondansetron [Zofran ODT] 4 mg PO Q8HR PRN #10 tab PRN Reason: Nausea Referrals: Dmitry Juárez MD [Primary Care Provider] - 1-2 days
[2021-06-16 17:09] LABS: Basophils % (A) 0 %; Eosinophils # (A) 0.1 k/uL (0-0.7); Eosinophils % (A) 1 %; HCT 45.7 % (34.0-46.0); Lymphocytes # (A) 1.6 k/uL (1.0-4.8); Lymphocytes % (A) 16 %; MCH 30.9 pg (25.0-35.0); MCHC 32.9 g/dL (31.0-37.0); MCV 93.8 fL (80.0-100.0); Mean Platelet Volume 7.9; Monocytes # (A) 0.5 k/uL (0-1.0); Monocytes % (A) 4 %; Neutrophils # (A) 8.1 k/uL (1.3-7.7); Neutrophils % (A) 78 %; Platelet Count 340 k/uL (150-450); RBC 4.87 m/uL (3.80-5.40); RDW 12.7 % (11.5-15.5); WBC 10.4 k/uL (3.8-10.6)
[2021-06-16 17:21] LABS: ALT 22 U/L (4-34); AST 21 U/L (14-36); African American GFR (CKD) >90 (>60 ml/min/1.73 sqM); Albumin 5.3 g/dL (3.5-5.0); Alkaline Phosphatase 78 U/L (38-126); Anion Gap 20 mmol/L; Blood Urea Nitrogen 24 mg/dL (7-17); Calcium 10.2 mg/dL (8.4-10.2); Carbon Dioxide 15 mmol/L (22-30); Chloride 108 mmol/L (98-107); Glucose 102 mg/dL (74-99); Lipase 71 U/L (23-300); Non-African American GFR(CKD) >90 (>60 ml/min/1.73 sqM); Potassium 3.9 mmol/L (3.5-5.1); Sodium 143 mmol/L (137-145); Total Bilirubin 0.7 mg/dL (0.2-1.3); Total Protein 8.8 g/dL (6.3-8.2)
--- NOTE | 2021-06-16 17:38 | CT ---
EXAMINATION TYPE: CT abdomen pelvis w con DATE OF EXAM: 06/16/2021 COMPARISON: 08/18/2019 HISTORY: Lower abdominal pain. CT DLP: 358.8 mGycm Automated exposure control for dose reduction was used. TECHNIQUE: Helical acquisition of images was performed from the lung bases through the pelvis. CONTRAST: Performed without Oral Contrast and with IV Contrast, patient injected with 100ml mL of Isovue 300. FINDINGS: LUNG BASES: No significant abnormality is appreciated. LIVER/GB: No acute abnormality is appreciated. Stable multiple benign-appearing hepatic cysts measuri ng up to 1.1 cm. PANCREAS: No significant abnormality is seen. SPLEEN: No significant abnormality is seen. ADRENALS: No significant abnormality is seen. KIDNEYS: No acute abnormality is seen. Stable 4 mm right renal cyst. FREE AIR: No free air is visualized. RETROPERITONEAL ADENOPATHY: None visualized REPRODUCTIVE ORGANS: No significant abnormality is seen URINARY BLADDER: No significant abnormality is seen. PELVIC ADENOPATHY: None visualized. OSSEOUS STRUCTURES: No acute abnormality is seen. Stable L2 vertebral body lucent lesion, consistent with hemangioma. BOWEL: No acute abnormality is seen. Colonic diverticulosis without acute diverticulitis. Normal bravo endix. OTHER: A 1.5 cm simple appearing right breast cystic lesion present. Also 13 mm right adnexal cyst. IMPRESSION: 13 MM RIGHT OVARIAN CYST. INCIDENTAL 15 MM RIGHT BREAST CYSTIC LESION. RECOMMEND CLINICAL AND DEDICATED IMAGING CORRELATION INDICATED. OTHERWISE NO ACUTE ABNORMALITY. STABLE HEPATIC AND RIGHT RENAL CYSTS.
[2021-06-16 18:18] LABS: VBG PH 7.37 (7.31-7.41)
[2021-06-16 20:40] LABS: Appearance,Urine Clear (Clear); Bilirubin,Urine Negative (Negative); Blood,Urine Trace (Negative); Color,Urine Yellow; Glucose,Urine (UA) Negative (Negative); Ketones,Urine 3+ (Negative); Leukocyte Esterase,Urine Negative (Negative); Mucus,Urine Rare /hpf; Nitrite,Urine Negative (Negative); PH, Urine 5.5 (5.0-8.0); Protein,Urine 1+ (Negative); RBC,Urine 1 /hpf (0-5); Squamous Epithelial Cell,Urine 5 /hpf (0-4); Urobilinogen,Urine <2.0 mg/dL (<2.0); WBC,Urine 2 /hpf (0-5)
[2021-06-16 20:45] LABS: Specific Gravity,Urine >1.050 (1.001-1.035)
[2021-06-16] MEDS ORDERED: ONDANSETRON 4 MG ODT STARTER PACK 2 TAB BTL PO STA (20:58)
[2021-06-16 21:17] VITALS: BP 124/80; PULSE 98; RESP 16; TEMP 98.3
== END 2021-06-16 21:16 | disposition home or self-care (01) ==
LOC: EC 14:27
DX: R10.30 Lower abdominal pain, unspecified (principal); E86.0 Dehydration; Z20.822 Contact with and (suspected) exposure to COVID-19
CPT/HCPCS: 99284; 96374; 96361 ×2; 36415; 80053; 82803; 83605; 83690; 85025; 81001; 87635; 74177; J2405; S0119; Q9967

== ENCOUNTER 2021-06-20 10:02 | Inpatient (IN) | payer MEDICARE, OTHER ==
[2021-06-20] MEDS ORDERED: SODIUM CHLORIDE 0.9% 1,000 ML IV STA (11:37)
--- NOTE | 2021-06-20 11:41 | ED ---
General Adult HPI - General Chief complaint: Weakness Stated complaint: possible dehydration Time Seen by Provider: 06/20/21 11:33 Source: patient, family, RN notes reviewed, old records reviewed Mode of arrival: wheelchair Limitations: no limitations - History of Present Illness Initial comments: Mentally delayed 51-year-old female presents to the emergency room with her father/legal guardian. He states that she lost her mother in September of this year and she has been grieving. She will not eat. She was seen in the hospital for these same symptoms on June 16, given IV fluids and discharged home. He wants her admitted to the hospital for psychiatric care and failure to thrive. He states that he was referred to Dr. Puri after her last ER visit and he was not happy with the plan of care. He states that she is not getting better and she is not eating and this is his second visit for dehydration and he is increasingly concerned. He denies any cough, vomiting, diarrhea, no fevers. -: week(s) (1) Severity scale (1-10): 0 Associated Symptoms: denies other symptoms Treatments Prior to Arrival: none - Related Data Home Medications Medication Instructions Recorded Confirmed Cholecalciferol [Vitamin D3 (25 25 mcg PO DAILY 04/30/21 06/20/21 Mcg = 1000 Iu)] Cranberry Fruit Extract [Cranberry] 500 mg PO DAILY 06/16/21 06/20/21 methylPREDNISolone [Medrol Dose See Taper PO DAILY 06/16/21 06/20/21 Pack] Amoxic-Pot Clav 875-125Mg 1 tab PO BID 06/20/21 06/20/21 [Augmentin 875-125] Mirtazapine [Remeron] 15 mg PO HS 06/20/21 06/20/21 Previous Rx's Medication Instructions Recorded Ondansetron [Zofran ODT] 4 mg PO Q8HR PRN #10 tab 06/16/21 Allergies Allergy/AdvReac Type Severity Reaction Status Date / Time No Known Allergies Allergy Verified 06/20/21 12:12 Review of Systems ROS Statement: Those systems with pertinent positive or pertinent negative responses have been documented in the HPI. ROS Other: All systems not noted in ROS Statement are negative. Past Medical History Additional Past Medical History / Comment(s): mentally handicapped History of Any Multi-Drug Resistant Organisms: None Reported Past Surgical History: No Surgical Hx Reported Past Psychological History: No Psychological Hx Reported Smoking Status: Never smoker Past Alcohol Use History: None Reported Past Drug Use History: None Reported General Exam Limitations: altered mental status (Mentally delayed) General appearance: alert, in no apparent distress Head exam: Present: atraumatic, normocephalic, normal inspection Eye exam: Present: PERRL. Absent: scleral icterus, conjunctival injection, periorbital swelling, periorbital tenderness Pupils: Present: normal accommodation ENT exam: Present: normal oropharynx, mucous membranes dry, other (lips dry and cracked) Neck exam: Present: normal inspection, full ROM. Absent: tenderness, meningismus, lymphadenopathy, thyromegaly Respiratory exam: Present: normal lung sounds bilaterally. Absent: respiratory distress, wheezes, rales, rhonchi, stridor, chest wall tenderness, accessory muscle use Cardiovascular Exam: Present: regular rate, normal rhythm, normal heart sounds. Absent: systolic murmur, diastolic murmur, rubs, gallop, clicks, JVD GI/Abdominal exam: Present: soft, normal bowel sounds. Absent: distended, tenderness, guarding, rebound, rigid Extremities exam: Present: normal inspection, full ROM, normal capillary refill. Absent: tenderness, pedal edema, joint swelling, calf tenderness Neurological exam: Present: alert, abnormal gait (Shuffling and unsteady) Psychiatric exam: Present: normal affect, normal mood Skin exam: Present: warm, dry, intact, normal color. Absent: rash, cyanosis, diaphoretic, erythema, petechiae, pallor Course Vital Signs 06/20/21 10:30 Temperature 98.2 F Pulse Rate 65 Respiratory 20 Rate Blood Pressure 124/77 O2 Sat by Pulse 94 L Oximetry - Reevaluation(s) Reevaluation #1: 06/20/21 14:43 Patient was given something to drink and crackers and is tolerating both at this time. Time: 14:43 Medical Decision Making - Medical Decision Making Mentally delayed 51-year-old female presents to the emergency room with her fa ther/legal guardian for dehydration. This is the second visit for dehyration in the past 4 days. Her father feels she is not eating related to the loss of her mother in September. He is requesting admission for failure to thrive. Patient was given crackers and water to drink in the ER and she took it readily. Father states that she will not eat at home. Her CO2 is 16,anion gap 18, BUN is 18, urinalysis shows 4+ ketones. Coronavirus swab is negative. She was given IV fluids in the emergency room to be admitted for dehydration with a consult to social. Case was discussed with Dr. Mix. - Lab Data Result diagrams: 06/20/21 11:48 06/20/21 11:48 Lab Results 06/20/21 06/20/21 06/20/21 Range/Units 11:48 11:48 11:48 WBC 8.5 (3.8-10.6) k/uL RBC 4.95 (3.80-5.40) m/uL Hgb 14.7 (11.4-16.0) gm/dL Hct 46.5 H (34.0-46.0) % MCV 94.0 (80.0-100.0) fL MCH 29.6 (25.0-35.0) pg MCHC 31.5 (31.0-37.0) g/dL RDW 12.2 (11.5-15.5) % Plt Count 282 (150-450) k/uL MPV 8.3 Neutrophils % 74 % Lymphocytes % 18 % Monocytes % 5 % Eosinophils % 1 % Basophils % 0 % Neutrophils # 6.3 (1.3-7.7) k/uL Lymphocytes # 1.6 (1.0-4.8) k/uL Monocytes # 0.5 (0-1.0) k/uL Eosinophils # 0.1 (0-0.7) k/uL Basophils # 0.0 (0-0.2) k/uL Sodium 141 (137-145) mmol/L Potassium 3.9 (3.5-5.1) mmol/L Chloride 107 (98-107) mmol/L Carbon Dioxide 16 L (22-30) mmol/L Anion Gap 18 mmol/L BUN 18 H (7-17) mg/dL Creatinine 0.82 (0.52-1.04) mg/dL Est GFR (CKD-EPI)AfAm >90 (>60 ml/min/1.73 sqM) Est GFR (CKD-EPI)NonAf 84 (>60 ml/min/1.73 sqM) Glucose 75 (74-99) mg/dL Plasma Lactic Acid Don 1.4 (0.7-2.0) mmol/L Calcium 10.0 (8.4-10.2) mg/dL Magnesium 1.8 (1.6-2.3) mg/dL Total Bilirubin 0.7 (0.2-1.3) mg/dL AST 18 (14-36) U/L ALT 18 (4-34) U/L Alkaline Phosphatase 80 (38-126) U/L Total Protein 8.4 H (6.3-8.2) g/dL Albumin 5.0 (3.5-5.0) g/dL Urine Color Urine Appearance (Clear) Urine pH (5.0-8.0) Ur Specific [place] (1.001-1.035) Urine Protein (Negative) Urine Glucose (UA) (Negative) Urine Ketones (Negative) Urine Blood (Negative) Urine Nitrite (Negative) Urine Bilirubin (Negative) Urine Urobilinogen (<2.0) mg/dL Ur Leukocyte Esterase (Negative) Urine RBC (0-5) /hpf Urine WBC (0-5) /hpf Urine Mucus (None) /hpf Coronavirus (PCR) (Not Detectd) 06/20/21 06/20/21 Range/Units 13:40 16:04 WBC (3.8-10.6) k/uL RBC (3.80-5.40) m/uL Hgb (11.4-16.0) gm/dL Hct (34.0-46.0) % MCV (80.0-100.0) fL MCH (25.0-35.0) pg MCHC (31.0-37.0) g/dL RDW (11.5-15.5) % Plt Count (150-450) k/uL MPV Neutrophils % % Lymphocytes % % Monocytes % % Eosinophils % % Basophils % % Neutrophils # (1.3-7.7) k/uL Lymphocytes # (1.0-4.8) k/uL Monocytes # (0-1.0) k/uL Eosinophils # (0-0.7) k/uL Basophils # (0-0.2) k/uL Sodium (137-145) mmol/L Potassium (3.5-5.1) mmol/L Chloride (98-107) mmol/L Carbon Dioxide (22-30) mmol/L Anion Gap mmol/L BUN (7-17) mg/dL Creatinine (0.52-1.04) mg/dL Est GFR (CKD-EPI)AfAm (>60 ml/min/1.73 sqM) Est GFR (CKD-EPI)NonAf (>60 ml/min/1.73 sqM) Glucose (74-99) mg/dL Plasma Lactic Acid Don (0.7-2.0) mmol/L Calcium (8.4-10.2) mg/dL Magnesium (1.6-2.3) mg/dL Total Bilirubin (0.2-1.3) mg/dL AST (14-36) U/L ALT (4-34) U/L Alkaline Phosphatase (38-126) U/L Total Protein (6.3-8.2) g/dL Albumin (3.5-5.0) g/dL Urine Color Yellow Urine Appearance Clear (Clear) Urine pH 5.5 (5.0-8.0) Ur Specific [place] 1.035 (1.001-1.035) Urine Protein 1+ H (Negative) Urine Glucose (UA) Negative (Negative) Urine Ketones 4+ H (Negative) Urine Blood Negative (Negative) Urine Nitrite Negative (Negative) Urine Bilirubin Negative (Negative) Urine Urobilinogen <2.0 (<2.0) mg/dL Ur Leukocyte Esterase Negative (Negative) Urine RBC <1 (0-5) /hpf Urine WBC 1 (0-5) /hpf Urine Mucus Rare H (None) /hpf Coronavirus (PCR) Not Detected (Not Detectd) Disposition Clinical Impression: Dehydration Disposition: ADMITTED IP TO THIS [facility] Decision Date: 06/20/21 Decision Time: 14:41
[2021-06-20 12:13] LABS: Basophils % (A) 0 %; Eosinophils # (A) 0.1 k/uL (0-0.7); Eosinophils % (A) 1 %; HCT 46.5 % (34.0-46.0); HGB 14.7 gm/dL (11.4-16.0); Lymphocytes # (A) 1.6 k/uL (1.0-4.8); Lymphocytes % (A) 18 %; MCH 29.6 pg (25.0-35.0); MCHC 31.5 g/dL (31.0-37.0); Mean Platelet Volume 8.3; Monocytes # (A) 0.5 k/uL (0-1.0); Monocytes % (A) 5 %; Neutrophils # (A) 6.3 k/uL (1.3-7.7); Neutrophils % (A) 74 %; Platelet Count 282 k/uL (150-450); RBC 4.95 m/uL (3.80-5.40); RDW 12.2 % (11.5-15.5); WBC 8.5 k/uL (3.8-10.6)
[2021-06-20 12:40] LABS: ALT 18 U/L (4-34); AST 18 U/L (14-36); African American GFR (CKD) >90 (>60 ml/min/1.73 sqM); Alkaline Phosphatase 80 U/L (38-126); Anion Gap 18 mmol/L; Blood Urea Nitrogen 18 mg/dL (7-17); Carbon Dioxide 16 mmol/L (22-30); Chloride 107 mmol/L (98-107); Glucose 75 mg/dL (74-99); Magnesium 1.8 mg/dL (1.6-2.3); Non-African American GFR(CKD) 84 (>60 ml/min/1.73 sqM); Potassium 3.9 mmol/L (3.5-5.1); Sodium 141 mmol/L (137-145); Total Bilirubin 0.7 mg/dL (0.2-1.3); Total Protein 8.4 g/dL (6.3-8.2)
[2021-06-20 13:56] LABS: Appearance,Urine Clear (Clear); Bilirubin,Urine Negative (Negative); Blood,Urine Negative (Negative); Color,Urine Yellow; Glucose,Urine (UA) Negative (Negative); Ketones,Urine 4+ (Negative); Leukocyte Esterase,Urine Negative (Negative); Mucus,Urine Rare /hpf; Nitrite,Urine Negative (Negative); PH, Urine 5.5 (5.0-8.0); Protein,Urine 1+ (Negative); RBC,Urine <1 /hpf (0-5); Specific Gravity,Urine 1.035 (1.001-1.035); Urobilinogen,Urine <2.0 mg/dL (<2.0); WBC,Urine 1 /hpf (0-5)
[2021-06-20] MEDS ORDERED: SODIUM CHLORIDE 0.9% 1,000 ML IV ONE (14:19)
[2021-06-20] MEDS ORDERED: NALOXONE 0.4 MG/ML 1 ML VIAL IV PRN (14:37)
[2021-06-20] MEDS ORDERED: HYDROcodone/APAP 5-325MG 1 EACH TAB PO PRN (14:41)
[2021-06-20] MEDS ORDERED: ONDANSETRON ODT 4 MG TAB PO PRN (14:49)
--- NOTE | 2021-06-20 18:04 | P.HPIM ---
History of Present Illness H&P Date: 06/20/21 Chief Complaint: Failure to thrive Patient is a 51-year-old female with a past medical history significant for cognitive delay presents to the hospital by her guardian due to poor oral intake. The patient's mother possibly in September and over the last 30 days has been extremely withdrawn and not eating at home. During my examination was unable to get too much information directly from her however her guarding was present at bedside. May concern at this time is lack of oral intake/dehydration. Vital signs within reviewed which are within normal limits and stable. CBC BMP reviewed. CBC no leukocytosis H&H is within normal limits. BMP reviewed BUN/creatinine within normal limits electro lites within normal limits. Review of Systems 10 point review of systems completed and negative except as above. Past Medical History Additional Past Medical History / Comment(s): mentally handicapped History of Any Multi-Drug Resistant Organisms: None Reported Past Surgical History: No Surgical Hx Reported Past Psychological History: No Psychological Hx Reported Smoking Status: Never smoker Past Alcohol Use History: None Reported Past Drug Use History: None Reported Medications and Allergies Home Medications Medication Instructions Recorded Confirmed Type Cholecalciferol [Vitamin D3 (25 25 mcg PO DAILY 04/30/21 06/20/21 History Mcg = 1000 Iu)] Cranberry Fruit Extract [Cranberry] 500 mg PO DAILY 06/16/21 06/20/21 History Ondansetron [Zofran ODT] 4 mg PO Q8HR PRN #10 tab 06/16/21 06/20/21 Rx methylPREDNISolone [Medrol Dose See Taper PO DAILY 06/16/21 06/20/21 History Pack] Amoxic-Pot Clav 875-125Mg 1 tab PO BID 06/20/21 06/20/21 History [Augmentin 875-125] Mirtazapine [Remeron] 15 mg PO HS 06/20/21 06/20/21 History Allergies Allergy/AdvReac Type Severity Reaction Status Date / Time No Known Allergies Allergy Verified 06/20/21 12:12 Physical Exam Vitals: Vital Signs Temp Pulse Resp BP Pulse Ox 06/20/21 10:30 98.2 F 65 20 124/77 94 L Intake and Output 06/20/21 06/20/21 06/20/21 06:59 14:59 22:59 Other: Weight 54.431 kg Patient was not cooperative during physical examination. General she is awake alert oriented and her baseline Results CBC & Chem 7: 06/20/21 11:48 06/20/21 11:48 Labs: Abnormal Lab Results - Last 24 Hours (Table) 06/20/21 06/20/21 06/20/21 Range/Units 11:48 11:48 13:40 Hct 46.5 H (34.0-46.0) % Carbon Dioxide 16 L (22-30) mmol/L BUN 18 H (7-17) mg/dL Total Protein 8.4 H (6.3-8.2) g/dL Urine Protein 1+ H (Negative) Urine Ketones 4+ H (Negative) Urine Mucus Rare H (None) /hpf Assessment and Plan Assessment: Assessment: #1 failure to thrive #2 development delay Plan: -Aspiration/fall precaution -Patient did a crackers which has been the most is it in the last 1 week. -Psychiatry and manager social consulted to evaluate for possible depression in any social assistance of nothing by mouth. DVT prophylaxis
[2021-06-20] MEDS: SODIUM CHLORIDE 0.9% 1,000 ML IV SCH (20:52)
[2021-06-20] MEDS ORDERED: MIRTAZAPINE 15 MG TAB PO SCH (21:00)
[2021-06-21] MEDS: SODIUM CHLORIDE 0.9% 1,000 ML IV SCH ×2 (07:21→22:24)
[2021-06-21] MEDS: ENOXAPARIN 40 MG/0.4 ML SYRINGE SQ SCH (08:07)
[2021-06-21 08:59] LABS: Basophils % (A) 1 %; Eosinophils # (A) 0.1 k/uL (0-0.7); Eosinophils % (A) 1 %; HCT 42.1 % (34.0-46.0); HGB 13.4 gm/dL (11.4-16.0); Lymphocytes # (A) 1.1 k/uL (1.0-4.8); Lymphocytes % (A) 15 %; MCH 30.1 pg (25.0-35.0); MCHC 31.8 g/dL (31.0-37.0); MCV 94.8 fL (80.0-100.0); Mean Platelet Volume 7.7; Monocytes # (A) 0.3 k/uL (0-1.0); Monocytes % (A) 4 %; Neutrophils % (A) 79 %; Platelet Count 247 k/uL (150-450); RBC 4.44 m/uL (3.80-5.40); RDW 12.2 % (11.5-15.5); WBC 7.7 k/uL (3.8-10.6)
[2021-06-21 09:16] LABS: African American GFR (CKD) >90 (>60 ml/min/1.73 sqM); Anion Gap 13 mmol/L; Blood Urea Nitrogen 7 mg/dL (7-17); Calcium 9.1 mg/dL (8.4-10.2); Carbon Dioxide 15 mmol/L (22-30); Chloride 112 mmol/L (98-107); Glucose 96 mg/dL (74-99); Magnesium 1.7 mg/dL (1.6-2.3); Non-African American GFR(CKD) >90 (>60 ml/min/1.73 sqM); Phosphorus 2.7 mg/dL (2.5-4.5); Potassium 3.7 mmol/L (3.5-5.1); Sodium 140 mmol/L (137-145)
[2021-06-21 11:32] VITALS: BMI 19.3
--- NOTE | 2021-06-21 13:26 | P.CN ---
Psychiatric Consult - . Consult date: 06/21/21 Consult:: 06/21/21 12:56 IDENTIFYING DATA: This patient is a 51-year-old female with a history of developmental delay who currently lives with her stepfather in a house and he is her guardian. REASON FOR REFERRAL: Psychiatry was consulted for poor oral intake and depression HISTORY OF PRESENT ILLNESS: The patient presented to the hospital on 06/20 and was brought in by patient's stepfather. Patient apparently has been grieving and depressed from the loss of her mother in September according to ER report. Patient also had been reporting a decrease in the oral intake and failure to thrive. Patient was the recently seen on June 16 in the ER for dehydration and discharged back home. Patients nurse claims that patient has been tearful and with the aunt at the bedside and has been refusing to eat. Wire Loop Machine Operator attempted to speak with patient at the bedside who was crying and it was difficult to comprehend the patient. She spoke about falling off the chair and that it hurt her neck. She also pointed to her back and claims that it hurt. She had difficulty explaining/expressing any other problem or concern. She was very concrete. Aunt was at the bedside and able to give further information states that patient has been having "mood swings" and has been more depressed lately for the past 2 weeks. She states that she has been cooperative in most ways except for taking this or eating meals. She states that she has become a lot more sensitive and emotional. She claims that patient also has been going through menopause. Her sleep has been fair and recently started on Remeron with little help. Patient is denying any auditory or visual hallucinations and any suicidal or homicidal ideations intent or plan. PAST PSYCHIATRIC HISTORY: Patient has a a history of developmental delay. She is currently on Remeron 15 mg daily at bedtime. Patient denies any previous psychiatric hospitalizations. She currently follows up at [facility] however is not being seen by a psychiatrist. PAST MEDICAL HISTORY: mentally handicapped ALLERGIES: as per EMR. CHEMICAL DEPENDENCY HISTORY: as per HPI. FAMILY PSYCHIATRIC/SUBSTANCE USE HISTORY: According to aunt, patient's brother had committed suicide. SOCIAL HISTORY: Patient was born and raised in [facility] [place] [facility]. She is developmentally delayed and lives with her stepfather in a house who is now her guardian. MENTAL STATUS EXAM: General Appearance: Patient appears to be thin, has short hair, tearful, poor dentition, stated age is alert, directable. Patient appears to have poor hygiene and grooming wearing hospital gown with fair eye contact. Behavior: Tearful, no agitation. Speech: Patient's speech is difficult to comprehend. [place]. Mood/Affect: Patient reports their mood is "hurt", affect is congruent and tearful. Suicidality/Homicidality: Patient denies having any suicidal or homicidal ideation intent or plan. Perceptions: Patient denies any visual hallucinations and denies any auditory hallucinations Though content/process: [place], poverty of content. Focused on falling off a chair. Memory and concentration: AOX1, only knows her name, severe intellectual deficit. Judgment and insight: Chronically limited IMPRESSIONS: Major depressive disorder Intellectual disability, severe PLAN: -At this time patient DOES NOT meet criteria for inpatient psychiatric admission. -Patient DOES NOT have decision making capacity at this time and is unable to reason through and communicate/appreciate the risks, benefits and alternatives to treatment. -Would recommend the following medication changes/additions: Discontinued Remeron. Started Seroquel 25 mg daily at bedtime for mood adjunct/appetite/insomnia. Start Cymbalta 30 mg daily for mood/anxiety. -Will continue to follow along -Please contact with any questions. 06/21/21 13:19
[2021-06-21] MEDS: DULoxetine HCL 30 MG CAPSULE.DR PO SCH (15:15)
--- NOTE | 2021-06-21 16:34 | P.PN ---
Subjective Progress Note Date: 06/21/21 Principal diagnosis: Failure to thrive Patient was examined at bedside today not complaining of any new symptom mythology. She continues to report to her baseline. Family present about little questions and answered. She did have a little bit of fluid today. Patient was evaluated by psychiatry pending their evaluation and plan Objective - Vital Signs Vital signs: Vital Signs Temp 96.2 F L 06/21/21 14:00 Pulse 97 06/21/21 14:00 Resp 17 06/21/21 14:00 BP 112/66 06/21/21 14:00 Pulse Ox 100 06/21/21 14:00 Intake & Output 06/20/21 06/21/21 06/21/21 18:59 06:59 18:59 Weight 54.431 kg 54.431 kg 54.431 kg Other: Voiding Method Toilet Toilet # Voids 1 - Exam Constitutional: No acute distress, developmentally delayed Lungs: Normal respiratory effort, no accessory muscle use Cardiovascular: Heart regular in rate , No murmurs, gallops, or rubs, No peripheral edema Abdominal: Soft, Nontender, no guarding, rebound or rigidity Skin: Normal temperature, tone, texture, turgor, no induration, No subcutaneous nodules, No rash, lesions, No ulcers - Labs CBC & Chem 7: 06/21/21 08:43 06/21/21 08:43 Labs: Abnormal Lab Results - Last 24 Hours (Table) 06/21/21 Range/Units 08:43 Chloride 112 H (98-107) mmol/L Carbon Dioxide 15 L (22-30) mmol/L Assessment and Plan Assessment: Assessment: #1 failure to thrive #2 development delay Plan: -Aspiration/fall precaution -Patient did have some food today. -Psychiatry and nursing home social worker consulted to evaluate for possible depression in any social assistance of nothing by mouth. -Patient started on Seroquel and Cymbalta as per psychiatry. DVT prophylaxis Disposition disposition is next 24 hours once cleared by psych.
[2021-06-21] MEDS: ACETAMINOPHEN TAB 325 MG TAB PO PRN (19:37)
[2021-06-21] MEDS ORDERED: QUEtiapine 25 MG TAB PO SCH (21:00)
[2021-06-22] MEDS: ENOXAPARIN 40 MG/0.4 ML SYRINGE SQ SCH (07:47)
[2021-06-22] MEDS: DULoxetine HCL 30 MG CAPSULE.DR PO SCH ×2 (07:47→09:07)
[2021-06-22] MEDS: SODIUM CHLORIDE 0.9% 1,000 ML IV SCH (11:49)
--- NOTE | 2021-06-22 13:41 | P.PN ---
Progress Note - Text Progress Note Date: 06/22/21 Interval History: Patient was seen today for psychiatric follow-up regarding patient's depression and poor appetite. Patient's daughter states that patient continues to be refusing to eat however has been taking her medications. Patient was seen today at the bedside and had her father and aunt at her side. They both claim that patient is less tearful however appears to be more sedated today. They claim that she is less interested in food and has not eaten much of her meals. They claim that she did not eat breakfast today however did have "a couple of bites" of dinner last night. They also state the patient only took a few sips of water when she took her medications and that was it. When real estate underwriter spoke with patient she continues to endorse feeling "sad" and when asked about wanting to hurt herself she states that she does and pointed to her back and claims that she wants to "fall down". At this time patient denies any homical ideations, intent or plan. Patient denies any auditory, visual hallucinations and denies any paranoia or delusions. Patient denies any side effects from the medications and has been compliant with meds. Mental Status Exam: General Appearance: Patient appears to be thin, has short hair,not tearful today, poor dentition, stated age is lethargic, directable. Patient appears to have improving hygiene and grooming wearing hospital gown with fair eye contact. Behavior: not Tearful, no agitation. Speech: Patient's speech is difficult to comprehend. [place]. Mood/Affect: Patient reports their mood is "sad", affect is congruenthowever is not tearful. Suicidality/Homicidality: Patient denies having any suicidal or homicidal ideation intent or plan. Perceptions: Patient denies any visual hallucinations and denies any auditory hallucinations Though content/process: [place], poverty of content. Focused on falling. Memory and concentration: AOX1, only knows her name, severe intellectual deficit. Judgment and insight: Chronically limited IMPRESSIONS: Major depressive disorder Intellectual disability, severe PLAN: -At this time patient DOES NOT meet criteria for inpatient psychiatric admission. -Patient DOES NOT have decision making capacity at this time and is unable to reason through and communicate/appreciate the risks, benefits and alternatives to treatment. -Would recommend the following medication changes/additions:Discontinued Seroquel due to family's request as they wanted her back on Remeron possibly due to oversedation. We will restart Remeron 30 mg daily at bedtime for sleep/mood/appetite. Increased Cymbalta 60 mg daily for mood/anxiety. -Will continue to follow along tomorrow. -Please contact with any questions.
--- NOTE | 2021-06-22 14:21 | P.PN ---
Subjective Progress Note Date: 06/22/21 Patient was seen and examined with height. She is awake but nonverbal at baseline discussed with RN and the father at the bedside. No acute changes overnight. Objective - Vital Signs Vital signs: Vital Signs Temp 98.1 F 06/22/21 02:00 Pulse 103 H 06/22/21 07:57 Resp 18 06/22/21 07:57 BP 125/72 06/22/21 07:57 Pulse Ox 97 06/22/21 07:57 Intake & Output 06/21/21 06/22/21 06/22/21 18:59 06:59 18:59 Intake Total 900 Balance 900 Weight 54.431 kg Intake: Intake, IV Titration 900 Amount Sodium Chloride 0.9% 1, 900 000 ml @ 75 mls/hr IV . [id number] [facility] Rx#:[id number] Other: Voiding Method Toilet # Voids 2 3 - Exam General: non toxic, no distress, appears at stated age Derm: warm, dry Head: atraumatic, normocephalic, symmetric Eyes: EOMI, no lid lag, anicteric sclera Mouth: no lip lesion, mucus membranes moist Cardiovascular: S1S2 reg, no murmur, positive posterior tibial pulse bilateral, Lungs: CTA bilateral, no rhonchi, no rales , no accessory muscle use Abdominal: soft, nontender to palpation, no guarding, no appreciable organomegaly Ext: no gross muscle atrophy, no edema, no contractures Neuro: CN II-XI grossly intact, no focal neuro deficits Psych: Patient awake but nonverbal at baseline. - Labs CBC & Chem 7: 06/21/21 08:43 06/21/21 08:43 Assessment and Plan Assessment: #Failure to thrive -Patient still not eating for family #Major depressive disorder -Family concerned about the sedation from Seroquel. -Psychiatrist started patient on Remeron and increase Cymbalta 60 mg daily. #Developmental delay #DVT prophylaxis with Lovenox #Full code Time with Patient: Greater than 30
[2021-06-22] MEDS: MIRTAZAPINE 15 MG TAB PO SCH (19:15)
[2021-06-22] MEDS: ACETAMINOPHEN TAB 325 MG TAB PO PRN (19:16)
[2021-06-23] MEDS: SODIUM CHLORIDE 0.9% 1,000 ML IV SCH ×2 (01:17→11:08)
[2021-06-23] MEDS: ENOXAPARIN 40 MG/0.4 ML SYRINGE SQ SCH (08:21)
[2021-06-23] MEDS: DULoxetine HCL 60 MG CAPSULE.DR PO SCH (08:22)
--- NOTE | 2021-06-23 13:50 | P.PN ---
Progress Note - Text Progress Note Date: 06/23/21 Interval History: Patient was seen today for psychiatric follow-up regarding patient's depression and poor appetite. Patient's nurse claims that she continues to refuse to eat and only took a couple of sips of water with her medications after initially struggling to take it this morning. Patient was seen lying in the bed watching television. She engaged public relations writer and thought that he was "Akash". She continues to have very poor insight and is refusing to eat and drink. She claims that her mood is "the same". She is not tearful today. She is mildly sedated. Poor attention span. At this time patient denies any homical ideations, intent or plan. Patient denies any auditory, visual hallucinations and denies any paranoia or delusions. Patient denies any side effects from the medications and has been compliant with meds. Patient's guardian/father is at the bedside and claims that patient is still refusing to eat and drink. Special Client Bus Driver and guardian spoke about different options for medications the risks and benefits and also the option of fluids/TPN and if things progress then the need for a feeding tube. He agreed and wanted whats best for the patient. Mental Status Exam: General Appearance: Patient appears to be thin, has short hair,not tearful today, poor dentition, stated age is lethargic at times, directable. Patient appears to have fair hygiene and grooming wearing hospital gown with fair eye contact. Behavior: not Tearful, no agitation. Speech: Patient's speech is difficult to comprehend. [place]. Mood/Affect: Patient reports their mood is "the same", affect is congruent however is not tearful. Suicidality/Homicidality: Patient denies having any suicidal or homicidal ideation intent or plan. Perceptions: Patient denies any visual hallucinations and denies any auditory hallucinations Though content/process: [place], poverty of content. Memory and concentration: AOX1, only knows her name, severe intellectual deficit. Judgment and insight: Chronically limited IMPRESSIONS: Major depressive disorder Intellectual disability, severe PLAN: -At this time patient DOES NOT meet criteria for inpatient psychiatric admission. -Patient DOES NOT have decision making capacity at this time and is unable to reason through and communicate/appreciate the risks, benefits and alternatives to treatment. -Would recommend the following medication changes/additions: continue with Remeron 30 mg daily at bedtime for sleep/mood/appetite. Cymbalta 60 mg daily f or mood/anxiety. added Merinol 2.5 mg bid for appetite stimulation. -Will continue to follow along tomorrow. -Please contact with any questions.
--- NOTE | 2021-06-23 14:20 | P.PN ---
Subjective Progress Note Date: 06/23/21 Patient was seen and examined at the bedside. She is awake but non- conversational (baseline). Patient continued to refuse food and medications. Discussed with planning manager staff Objective - Vital Signs Vital signs: Vital Signs Temp 98.2 F 06/23/21 08:27 Pulse 105 H 06/23/21 08:27 Resp 16 06/23/21 08:27 BP 123/72 06/23/21 08:27 Pulse Ox 96 06/23/21 08:27 Intake & Output 06/22/21 06/23/21 06/23/21 18:59 06:59 18:59 Intake Total 900 Balance 900 Weight 54.431 kg Intake: Intake, IV Titration 900 Amount Sodium Chloride 0.9% 1, 900 000 ml @ 75 mls/hr IV . [id number] [facility] Rx#:[id number] Other: Voiding Method Toilet # Voids 1 1 - Exam General: non toxic, no distress, appears at stated age Derm: warm, dry Head: atraumatic, normocephalic, symmetric Eyes: EOMI, no lid lag, anicteric sclera Mouth: no lip lesion, mucus membranes moist Cardiovascular: S1S2 reg, no murmur, positive posterior tibial pulse bilateral, Lungs: CTA bilateral, no rhonchi, no rales , no accessory muscle use Abdominal: soft, nontender to palpation, no guarding, no appreciable organomegaly Ext: no gross muscle atrophy, no edema, no contractures Neuro: CN II-XI grossly intact, no focal neuro deficits Psych: Patient awake but nonverbal at baseline. - Labs CBC & Chem 7: 06/21/21 08:43 06/21/21 08:43 Assessment and Plan Assessment: #Failure to thrive -Patient still not eating and continued to refuse treatment #Major depressive disorder -Per Psychiatry patient is not a candidate for inpatient psychiatric treatment -Family concerned about the sedation from Seroquel. -Psychiatrist started patient on Remeron and increase Cymbalta 60 mg daily. #Developmental delay #DVT prophylaxis with Lovenox #Full code
--- NOTE | 2021-06-23 15:14 | CDI ---
Documentation Clarification Form Date: 06/23/2021 03:00:34 PM From: Shayna Sears RN, CCDS Admit Date: 06/22/2021 02:06:00 PM Patient Name: Mara Acevedo Visit Number: [id number] Discharge Date: ATTENTION: The Clinical Documentation Specialists (CDI) and [facility] Coding Staff appreciate your assistance in clarifying documentation. Please respond to the clarification below the line at the bottom and electronically sign. The CDI & [facility] Coding staff will review the response and follow-up if needed. Please note: Queries are made part of the Legal Health Record. If you have any questions, please contact the author of this message via ITS. Dr. Onesimo Esposito The Registered Dietitian assessment on06/21/21 and 06/23/21 indicates this patient meets criteria for malnutrition acute, severe. Based on this information and the findings below, is there an additional diagnosis that is clinically appropriate for this patient? History/Risk Factors: Developmental delay, Dehydration Clinical Indicators: 51-year-old female with family reports she is refusing to eat x 9 days. Nutrition intake Poor 0-25 %. RD Consult Assessment: Malnutrition acute, Severe. Decreased intake consuming <50% of nutritional needs >5 days Current BMI: 19.4 Insufficient energy intake: Yes Weight Loss: reports weight loss over 9 days. Treatment: Dietary Consult: Yes Supplements: Ensure Compact TID Monitor PO, Supplement intake Is there an additional diagnosis that is clinically appropriate for this patient? [ ] Mild Protein-Calorie Malnutrition [ ] Moderate Protein-Calorie Malnutrition [ ] Severe Protein-Calorie Malnutrition [ ] Other condition, please specify [ ] Unable to Determine (Template Last Revised: August 2020) MTDD
[2021-06-23] MEDS: MIRTAZAPINE 15 MG TAB PO SCH (20:05)
[2021-06-24] MEDS: SODIUM CHLORIDE 0.9% 1,000 ML IV SCH ×2 (01:57→15:41)
[2021-06-24] MEDS: ENOXAPARIN 40 MG/0.4 ML SYRINGE SQ SCH (08:10)
[2021-06-24] MEDS: DULoxetine HCL 60 MG CAPSULE.DR PO SCH (08:21)
--- NOTE | 2021-06-24 13:36 | P.PN ---
Progress Note - Text Progress Note Date: 06/24/21 Interval History: Patient was seen today for psychiatric follow-up regarding patient's depression and poor appetite. Patient's nurse claims that she ate some of her lunch and is more lively today/communicative. Patient was seen today at the bedside with her father and aunt present. They state that patient appears to have improved since yesterday and drank a bit and ate some of her lunch today. Patient appears to have an improvement in her affect todayand was more communicative and interacti ve with writer editor. She appears to be less lethargic and more alert. she continues to think that writers name is "marlys". she states that she slept well last night. She is not tearful today. improving attention span. At this time patient denies any homical ideations, intent or plan. Patient denies any auditory, visual hallucinations and denies any paranoia or delusions. Patient denies any side effects from the medications and has been compliant with meds. Mental Status Exam: General Appearance: Patient appears to be thin, has short hair,not tearful today, poor dentition, stated age is more alert today, directable. animated, Patient appears to have fair hygiene and grooming wearing hospital gown with fair eye contact. Behavior: not Tearful, no agitation. more interactive today. Speech: Patient's speech is difficult to comprehend. Mood/Affect: Patient reports their mood is "ok", affect is congruent Suicidality/Homicidality: Patient denies having any suicidal or homicidal ideation intent or plan. Perceptions: Patient denies any visual hallucinations and denies any auditory hallucinations Though content/process: [place], poverty of content. Memory and concentration: AOX1, only knows her name, severe intellectual deficit. improving attention span. Judgment and insight: Chronically limited IMPRESSIONS: Major depressive disorder Intellectual disability, severe PLAN: -At this time patient DOES NOT meet criteria for inpatient psychiatric admission. -Patient DOES NOT have decision making capacity at this time and is unable to reason through and communicate/appreciate the risks, benefits and alternatives to treatment. -Would recommend the following medication changes/additions: continue with Remeron 30 mg daily at bedtime for sleep/mood/appetite. Cymbalta 60 mg daily for mood/anxiety. continue with Merinol 2.5 mg bid for appetite stimulation, this can be increased more as an outpatient if needed. -At this time psychiatry will sign off. I Informed RN of plan. -Please contact with any questions.
--- NOTE | 2021-06-24 16:11 | P.PN ---
Subjective Patient was seen and examined at the bedside. She is awake but non- conversational (baseline). Per RN the patient is eating. Discussed with RN candy e manager mission staff. Psychiatry signed off plan to discharge the patient tomorrow Objective - Vital Signs Vital signs: Vital Signs Temp 98.4 F 06/24/21 15:24 Pulse 107 H 06/24/21 15:24 Resp 18 06/24/21 15:24 BP 122/82 06/24/21 15:24 Pulse Ox 97 06/24/21 15:24 Intake & Output 06/23/21 06/24/21 06/24/21 18:59 06:59 18:59 Intake Total 300 300 Balance 300 300 Weight 54.431 kg Intake: Oral 300 300 Other: # Voids 1 - Exam General: non toxic, no distress, appears at stated age Derm: warm, dry Head: atraumatic, normocephalic, symmetric Eyes: EOMI, no lid lag, anicteric sclera Mouth: no lip lesion, mucus membranes moist Cardiovascular: S1S2 reg, no murmur, positive posterior tibial pulse bilateral, Lungs: CTA bilateral, no rhonchi, no rales , no accessory muscle use Abdominal: soft, nontender to palpation, no guarding, no appreciable o rganomegaly Ext: no gross muscle atrophy, no edema, no contractures Neuro: CN II-XI grossly intact, no focal neuro deficits Psych: Patient awake but nonverbal at baseline. - Labs CBC & Chem 7: 06/21/21 08:43 06/21/21 08:43 Assessment and Plan Assessment: #Failure to thrive -Patient start to eat today. Discussed with her stepfather also he is her DPOA he declines ideal feeding tube in the future -To discharge patient home tomorrow since patient was transferred -Psychiatrist for the patient on Marinol 2.5 mg twice daily. #Major depressive disorder -Per Psychiatry patient is not a candidate for inpatient psychiatric treatment -Patient DOES NOT have decision making capacity at this time and is unable to reason through and communicate/appreciate the risks, benefits and alternatives to treatment. -Psychiatrist started patient on Remeron 30 mg daily at bedtime and Cymbalta 60 mg daily. #Developmental delay #DVT prophylaxis with Lovenox #Full code
[2021-06-24] MEDS: MIRTAZAPINE 15 MG TAB PO SCH (19:38)
[2021-06-25 01:57] VITALS: RESP 16
[2021-06-25] MEDS: SODIUM CHLORIDE 0.9% 1,000 ML IV SCH (04:55)
[2021-06-25 08:44] VITALS: BP 98/62; PULSE 114; TEMP 97.9
[2021-06-25 09:21] LABS: ALT 23 U/L (4-34); AST 31 U/L (14-36); African American GFR (CKD) >90 (>60 ml/min/1.73 sqM); Albumin/Globulin Ratio 1.4; Alkaline Phosphatase 60 U/L (38-126); Anion Gap 13 mmol/L; Blood Urea Nitrogen 5 mg/dL (7-17); Calcium 9.3 mg/dL (8.4-10.2); Carbon Dioxide 13 mmol/L (22-30); Chloride 112 mmol/L (98-107); Globulin 2.9 g/dL; Glucose 81 mg/dL (74-99); Non-African American GFR(CKD) >90 (>60 ml/min/1.73 sqM); Potassium 3.8 mmol/L (3.5-5.1); Sodium 138 mmol/L (137-145); Total Bilirubin 0.9 mg/dL (0.2-1.3); Total Protein 6.9 g/dL (6.3-8.2)
[2021-06-25 09:24] LABS: Basophils % (A) 0 %; Eosinophils # (A) 0.2 k/uL (0-0.7); Eosinophils % (A) 2 %; HCT 44.2 % (34.0-46.0); Lymphocytes # (A) 1.3 k/uL (1.0-4.8); Lymphocytes % (A) 17 %; MCH 29.9 pg (25.0-35.0); MCHC 31.6 g/dL (31.0-37.0); MCV 94.6 fL (80.0-100.0); Mean Platelet Volume 7.8; Monocytes # (A) 0.4 k/uL (0-1.0); Monocytes % (A) 5 %; Neutrophils # (A) 5.5 k/uL (1.3-7.7); Neutrophils % (A) 74 %; Platelet Count 261 k/uL (150-450); RBC 4.68 m/uL (3.80-5.40); WBC 7.5 k/uL (3.8-10.6)
[2021-06-25] MEDS: ENOXAPARIN 40 MG/0.4 ML SYRINGE SQ SCH (09:24)
[2021-06-25] MEDS: DULoxetine HCL 60 MG CAPSULE.DR PO SCH (09:24)
--- NOTE | 2021-06-25 09:41 | P.DS ---
Providers Date of admission: 06/22/21 14:06 Expected date of discharge: 06/25/21 Attending physician: Ricky Tse MD Consults: 06/20/21 14:43 Consult Physician Routine Consulting Provider: Kevin Pavon Consult Reason/Comments: poor appetite/ loss of family member Do you want consulting provider notified?: Yes Primary care physician: Dmitry Juárez MD Hospital Course: History of present illness: Patient is a 51-year-old female with a past medical history significant for cognitive delay presents to the hospital by her guardian due to poor oral in take. The patient's mother possibly in September and over the last 30 days has been extremely withdrawn and not eating at home. During my examination was unable to get too much information directly from her however her guarding was present at bedside. May concern at this time is lack of oral intake/dehydration. Vital signs within reviewed which are within normal limits and stable. CBC BMP reviewed. CBC no leukocytosis H&H is within normal limits. BMP reviewed BUN/creatinine within normal limits electro lites within normal limits Hospital course: #Failure to thrive #Severe protein, calorie malnutrition -Patient start to eat today. Discussed with her stepfather also he is her DPOA he declines ideal feeding tube in the future -To discharge patient home tomorrow since patient was transferred -Psychiatrist started the patient on Marinol 2.5 mg twice daily. -Dietary following #Major depressive disorder -Per Psychiatry patient is not a candidate for inpatient psychiatric treatment -Patient DOES NOT have decision making capacity at this time and is unable to reason through and communicate/appreciate the risks, benefits and alternatives to treatment. -Psychiatrist started patient on Remeron 30 mg daily at bedtime and Cymbalta 60 mg daily. #Developmental delay Assessment: General: non toxic, no distress, appears at stated age Derm: warm, dry Head: atraumatic, normocephalic, symmetric Eyes: EOMI, no lid lag, anicteric sclera Mouth: no lip lesion, mucus membranes moist Cardiovascular: S1S2 reg, no murmur, positive posterior tibial pulse bilateral, Lungs: CTA bilateral, no rhonchi, no rales , no accessory muscle use Abdominal: soft, nontender to palpation, no guarding, no appreciable organomegaly Ext: no gross muscle atrophy, no edema, no contractures Neuro: CN II-XI grossly intact, no focal neuro deficits Psych: Patient awake but nonverbal at baseline. Plan - Discharge Summary Discharge Rx Participant: Yes New Discharge Prescriptions: New Mirtazapine [Remeron] 30 mg PO HS #30 tablet DULoxetine HCL [Cymbalta] 60 mg PO DAILY 30 Days #30 capsule dronabinoL [Marinol] 2.5 mg PO AC-BID 30 Days #60 cap Continue Cholecalciferol [Vitamin D3 (25 Mcg = 1000 Iu)] 25 mcg PO DAILY Cranberry Fruit Extract [Cranberry] 500 mg PO DAILY Discontinued Ondansetron [Zofran ODT] 4 mg PO Q8HR PRN #10 tab PRN Reason: Nausea Amoxic-Pot Clav 875-125Mg [Augmentin 875-125] 1 tab PO BID Mirtazapine [Remeron] 15 mg PO HS methylPREDNISolone [Medrol Dose Pack] See Taper PO DAILY Discharge Medication List Cholecalciferol [Vitamin D3 (25 Mcg = 1000 Iu)] 25 mcg PO DAILY 04/30/21 [History] Cranberry Fruit Extract [Cranberry] 500 mg PO DAILY 06/16/21 [History] DULoxetine HCL [Cymbalta] 60 mg PO DAILY 30 Days #30 capsule 06/25/21 [Rx] Mirtazapine [Remeron] 30 mg PO HS #30 tablet 06/25/21 [Rx] dronabinoL [Marinol] 2.5 mg PO AC-BID 30 Days #60 cap 06/25/21 [Rx] Follow up Appointment(s)/Referral(s): Dmitry Juárez MD [Primary Care Provider] - 1-2 days [facility], [NON-STAFF] - ([facility] will contact you within 48 hours of discharge to schedule in home nursing visits. ) Discharge Disposition: HOME WITH HOME HEALTH SERVICES
== END 2021-06-25 11:20 | disposition home health service (06) | DRG 640 ==
LOC: EC 10:02 → 4SSUR 16:09 → OBSVTOIN 06-22 14:06
PROVIDERS: ADMIT Internal Medicine; ATTEND Internal Medicine
DX: R62.7 Adult failure to thrive (principal); E43 Unspecified severe protein-calorie malnutrition; Z68.1 Body mass index [BMI] 19.9 or less, adult; F72 Severe intellectual disabilities; E86.0 Dehydration; F32.9 Major depressive disorder, single episode, unspecified; Z79.899 Other long term (current) drug therapy; Z20.822 Contact with and (suspected) exposure to COVID-19
CPT/HCPCS: 36415; 80048; 80053; 81001; 83605; 83735; 84100; 84443; 85025; 87635; 96360; 99285

== ENCOUNTER 2021-08-23 10:34 | Emergency (ER) | payer MEDICARE, OTHER ==
[2021-08-23 11:06] VITALS: RESP 18; TEMP 97
[2021-08-23] MEDS ORDERED: SODIUM CHLORIDE 0.9% 1,000 ML IV STA (13:19)
[2021-08-23] MEDS ORDERED: diphenhydrAMINE 50 MG/ML 1 ML VIAL IVP STA (13:19)
[2021-08-23] MEDS ORDERED: ONDANSETRON 4 MG/2 ML VIAL IVP STA (13:19)
[2021-08-23] MEDS ORDERED: FAMOTIDINE 20 MG/2 ML VIAL IV STA (13:20)
[2021-08-23 13:40] LABS: Appearance,Urine Clear (Clear); Bacteria,Urine Rare /hpf; Bilirubin,Urine Negative (Negative); Blood,Urine Negative (Negative); Color,Urine Yellow; Glucose,Urine (UA) Negative (Negative); Ketones,Urine 2+ (Negative); Leukocyte Esterase,Urine Small (Negative); Mucus,Urine Many /hpf; Nitrite,Urine Negative (Negative); PH, Urine 5.5 (5.0-8.0); Protein,Urine Trace (Negative); RBC,Urine 4 /hpf (0-5); Specific Gravity,Urine 1.033 (1.001-1.035); Squamous Epithelial Cell,Urine 5 /hpf (0-4); WBC,Urine 2 /hpf (0-5)
--- NOTE | 2021-08-23 13:54 | ED ---
General Adult HPI - General Source: patient, family, RN notes reviewed, old records reviewed Mode of arrival: ambulatory Limitations: no limitations <Johnny Valdez - Last Filed: 08/23/21 14:59> <Efrain Mix - Last Filed: 08/23/21 16:11> - General Chief complaint: Abdominal Pain Stated complaint: poss UTI Time Seen by Provider: 08/23/21 13:06 - History of Present Illness Initial comments: Patient is a 51-year-old female with past medical history of being mentally handicapped presents emergency department after caregiver is concerned for possible urinary tract infection. She has had some previously. Patient has been having some dry heaving, decreased appetite and complaining of nonspecific abdominal discomfort. He states the patient has been somewhat confused. Otherwise she is moving around normally. No other acute complaint at this time. Is requesting basic labs as well as evaluation for UTI. Patient denies any chest pain, shortness breath. No sick contacts. No upper respiratory illness. No fevers. No other acute complaints at this time. Confusion primarily started yesterday, and patient's guardian describes it as just being slightly more tired, not is conversive. Denies any falls, head trauma. Patient is not on blood thinners. (Johnny Valdez) - Related Data Home Medications Medication Instructions Recorded Confirmed Cholecalciferol [Vitamin D3 (25 50 mcg PO DAILY 04/30/21 08/23/21 Mcg = 1000 Iu)] Cranberry Fruit Extract [Cranberry] 500 mg PO DAILY 06/16/21 08/23/21 DULoxetine HCL [Cymbalta] 30 mg PO DAILY 08/23/21 08/23/21 Mirtazapine [Remeron] 15 mg PO HS 08/23/21 08/23/21 Sennosides [Ex-Lax Chew] 30 mg PO DAILY 08/23/21 08/23/21 Allergies Allergy/AdvReac Type Severity Reaction Status Date / Time No Known Allergies Allergy Verified 08/23/21 13:26 Review of Systems ROS Other: All systems not noted in ROS Statement are negative. <Johnny Valdez - Last Filed: 08/23/21 14:59> ROS Other: All systems not noted in ROS Statement are negative. <Efrain Mix - Last Filed: 08/23/21 16:11> ROS Statement: Those systems with pertinent positive or pertinent negative responses have been documented in the HPI. Review of Systems: Obtained with assistance from patient's guardian CONST: Denies fever EYES: Denies blurry vision ENT: Denies nasal congestion C/V: Denies Chest pain RESP: Denies shortness of breath GI: Endorses nonspecific abdominal discomfort : Denies dysuria SKIN: Denies rash. MSK: Denies joint pain. NEURO: Denies headache (Johnny Valdez) Past Medical History Additional Past Medical History / Comment(s): mentally handicapped History of Any Multi-Drug Resistant Organisms: None Reported Past Surgical History: No Surgical Hx Reported Past Psychological History: No Psychological Hx Reported Smoking Status: Never smoker Past Alcohol Use History: None Reported Past Drug Use History: None Reported <Johnny Valdez - Last Filed: 08/23/21 14:59> General Exam Limitations: no limitations <Johnny Valdez - Last Filed: 08/23/21 14:59> - General Exam Comments Initial Comments: General: Appears in no acute distress. HEAD: Normal with no signs of head trauma. EYES: Strabismus. EOMI. PERRLA. ENT: Hearing grossly intact, normal oropharynx. RESPIRATORY: Clear breath sounds bilaterally. No wheezes, rales, or rhonchi. C/V: Patient is mildly tachycardic which is likely secondary to her recurrent anxiety. S1 and S2 auscultated. Peripheral pulses 2+ intact throughout. No peripheral edema. ABD: Abdomen is soft, nondistended. No focal tenderness appreciated on exam. No guarding. No rebound tenderness. No peritoneal signs. EXT: Normal range of motion, no obvious deformity SKIN: No rashes or lesions observed on exposed skin. NEURO: Alert and oriented 2-3 which is her baseline. No focal deficits. (Johnny Valdez) Course Vital Signs 08/23/21 11:02 Temperature 97.0 F L Pulse Rate 110 H Respiratory 18 Rate Blood Pressure 104/70 O2 Sat by Pulse 98 Oximetry Medical Decision Making - Lab Data Result diagrams: 08/23/21 13:32 08/23/21 13:32 - EKG Data -: EKG Interpreted by Ny <Johnny Valdez - Last Filed: 08/23/21 14:59> - Lab Data Result diagrams: 08/23/21 13:32 08/23/21 13:32 <Efrain Mix - Last Filed: 08/23/21 16:11> - Medical Decision Making Based on the patient's presentation and physical exam, I'm concerned for possible UTI for the patient, however, rule out other intrapelvic pathology. Patient is a poor historian due to her underlying medical history, therefore we will obtain abdominal laboratory studies as well as a screening EKG. She'll be given a GI cocktail as well as IV fluids. Patient's guardian was in agreement this plan. Patient otherwise appears to be at her baseline at this time. Patient was treated for UTI with Macrobid previously, and guardian is requesting same antibiotic on this occasion if applicable. EKG showed no signs of acute ischemia. (Johnny Valdez) Patient reevaluated and reexamined by myself, Dr. Mix. Abdomen soft and nontender. No specific complaints at this time. Family is present. Family is concerned that symptoms of somewhat restless last night are related to psychiatric problems that she has previously had. There is a psychiatrist in the family that does plan on adjusting medications however they wanted her to have some medical screening prior to that. Family is updated on results and is comfortable with discharge of patient. Urine culture will be added (Efrain Mix) - Lab Data Lab Results 08/23/21 08/23/21 08/23/21 Range/Units 13:14 13:32 13:32 WBC 8.6 (3.8-10.6) k/uL RBC 4.48 (3.80-5.40) m/uL Hgb 13.7 (11.4-16.0) gm/dL Hct 42.3 (34.0-46.0) % MCV 94.4 (80.0-100.0) fL MCH 30.4 (25.0-35.0) pg MCHC 32.3 (31.0-37.0) g/dL RDW 13.0 (11.5-15.5) % Plt Count 308 (150-450) k/uL MPV 7.7 Neutrophils % 81 % Lymphocytes % 13 % Monocytes % 4 % Eosinophils % 1 % Basophils % 1 % Neutrophils # 6.9 (1.3-7.7) k/uL Lymphocytes # 1.1 (1.0-4.8) k/uL Monocytes # 0.4 (0-1.0) k/uL Eosinophils # 0.0 (0-0.7) k/uL Basophils # 0.1 (0-0.2) k/uL PT 10.7 (9.0-12.0) sec INR 1.0 (<1.2) APTT 23.8 (22.0-30.0) sec Sodium (137-145) mmol/L Potassium (3.5-5.1) mmol/L Chloride (98-107) mmol/L Carbon Dioxide (22-30) mmol/L Anion Gap mmol/L BUN (7-17) mg/dL Creatinine (0.52-1.04) mg/dL Est GFR (CKD-EPI)AfAm (>60 ml/min/1.73 sqM) Est GFR (CKD-EPI)NonAf (>60 ml/min/1.73 sqM) Glucose (74-99) mg/dL Plasma Lactic Acid Don (0.7-2.0) mmol/L Calcium (8.4-10.2) mg/dL Total Bilirubin (0.2-1.3) mg/dL AST (14-36) U/L ALT (4-34) U/L Alkaline Phosphatase (38-126) U/L Troponin I (0.000-0.034) ng/mL Total Protein (6.3-8.2) g/dL Albumin (3.5-5.0) g/dL Amylase (30-110) U/L Lipase (23-300) U/L Urine Color Yellow Urine Appearance Clear (Clear) Urine pH 5.5 (5.0-8.0) Ur Specific [place] 1.033 (1.001-1.035) Urine Protein Trace H (Negative) Urine Glucose (UA) Negative (Negative) Urine Ketones 2+ H (Negative) Urine Blood Negative (Negative) Urine Nitrite Negative (Negative) Urine Bilirubin Negative (Negative) Urine Urobilinogen 2.0 (<2.0) mg/dL Ur Leukocyte Esterase Small H (Negative) Urine RBC 4 (0-5) /hpf Urine WBC 2 (0-5) /hpf Ur Squamous Epith Cells 5 H (0-4) /hpf Urine Bacteria Rare H (None) /hpf Urine Mucus Many H (None) /hpf 08/23/21 08/23/21 08/23/21 Range/Units 13:32 13:32 13:32 WBC (3.8-10.6) k/uL RBC (3.80-5.40) m/uL Hgb (11.4-16.0) gm/dL Hct (34.0-46.0) % MCV (80.0-100.0) fL MCH (25.0-35.0) pg MCHC (31.0-37.0) g/dL RDW (11.5-15.5) % Plt Count (150-450) k/uL MPV Neutrophils % % Lymphocytes % % Monocytes % % Eosinophils % % Basophils % % Neutrophils # (1.3-7.7) k/uL Lymphocytes # (1.0-4.8) k/uL Monocytes # (0-1.0) k/uL Eosinophils # (0-0.7) k/uL Basophils # (0-0.2) k/uL PT (9.0-12.0) sec INR (<1.2) APTT (22.0-30.0) sec Sodium 141 (137-145) mmol/L Potassium 3.8 (3.5-5.1) mmol/L Chloride 108 H (98-107) mmol/L Carbon Dioxide 22 (22-30) mmol/L Anion Gap 11 mmol/L BUN 20 H (7-17) mg/dL Creatinine 0.69 (0.52-1.04) mg/dL Est GFR (CKD-EPI)AfAm >90 (>60 ml/min/1.73 sqM) Est GFR (CKD-EPI)NonAf >90 (>60 ml/min/1.73 sqM) Glucose 109 H (74-99) mg/dL Plasma Lactic Acid Don 1.6 (0.7-2.0) mmol/L Calcium 9.9 (8.4-10.2) mg/dL Total Bilirubin 0.7 (0.2-1.3) mg/dL AST 22 (14-36) U/L ALT 20 (4-34) U/L Alkaline Phosphatase 74 (38-126) U/L Troponin I <0.012 (0.000-0.034) ng/mL Total Protein 8.6 H (6.3-8.2) g/dL Albumin 5.1 H (3.5-5.0) g/dL Amylase 56 (30-110) U/L Lipase 80 (23-300) U/L Urine Color Urine Appearance (Clear) Urine pH (5.0-8.0) Ur Specific [place] (1.001-1.035) Urine Protein (Negative) Urine Glucose (UA) (Negative) Urine Ketones (Negative) Urine Blood (Negative) Urine Nitrite (Negative) Urine Bilirubin (Negative) Urine Urobilinogen (<2.0) mg/dL Ur Leukocyte Esterase (Negative) Urine RBC (0-5) /hpf Urine WBC (0-5) /hpf Ur Squamous Epith Cells (0-4) /hpf Urine Bacteria (None) /hpf Urine Mucus (None) /hpf - EKG Data EKG Comments: 12-lead Electrocardiogram Interpretation Note EKG was reviewed and interpreted by myself. 12-lead ECG performed at 1424 is interpreted by me as revealing sinus tachycardia at a rate of 113 beats per minute. Sandy is normal. ME interval is 112 ms, QRS ration is 102 ms, QTc is 399 ms. Patient does appear to have an incomplete right bundle branch block.. There were no ST or T wave abnormalities to suggest myocardial ischemia or injury. R wave progression across the precordium was satisfactory. By my interpretation this EKG is non-diagnostic for acute ischemia. No change with her to prior EKGs. (Johnny Valdez) Disposition <Johnny Valdez - Last Filed: 08/23/21 14:59> Is patient prescribed a controlled substance at d/c from ED?: No Time of Disposition: 16:11 <Efrain Mix - Last Filed: 08/23/21 16:11> Clinical Impression: Nausea Disposition: HOME SELF-CARE Condition: Stable Instructions (If sedation given, give patient instructions): Acute Nausea and Vomiting (ED) Additional Instructions: Please do follow-up with primary care physician and psychiatrist in the next day or 2 for recheck. Return for increased restlessness, vomiting, pain, fever, worsening or changing symptoms or other concerns. Referrals: Dmitry Juárez MD [Primary Care Provider] - 1-2 days
[2021-08-23 14:12] LABS: Basophils # (A) 0.1 k/uL (0-0.2); Basophils % (A) 1 %; Eosinophils % (A) 1 %; HCT 42.3 % (34.0-46.0); HGB 13.7 gm/dL (11.4-16.0); Lymphocytes # (A) 1.1 k/uL (1.0-4.8); Lymphocytes % (A) 13 %; MCH 30.4 pg (25.0-35.0); MCHC 32.3 g/dL (31.0-37.0); MCV 94.4 fL (80.0-100.0); Mean Platelet Volume 7.7; Monocytes # (A) 0.4 k/uL (0-1.0); Monocytes % (A) 4 %; Neutrophils # (A) 6.9 k/uL (1.3-7.7); Neutrophils % (A) 81 %; Platelet Count 308 k/uL (150-450); RBC 4.48 m/uL (3.80-5.40); WBC 8.6 k/uL (3.8-10.6)
[2021-08-23 14:27] LABS: ALT 20 U/L (4-34); AST 22 U/L (14-36); African American GFR (CKD) >90 (>60 ml/min/1.73 sqM); Albumin 5.1 g/dL (3.5-5.0); Alkaline Phosphatase 74 U/L (38-126); Amylase 56 U/L (30-110); Anion Gap 11 mmol/L; Blood Urea Nitrogen 20 mg/dL (7-17); Calcium 9.9 mg/dL (8.4-10.2); Carbon Dioxide 22 mmol/L (22-30); Chloride 108 mmol/L (98-107); Glucose 109 mg/dL (74-99); Lipase 80 U/L (23-300); Non-African American GFR(CKD) >90 (>60 ml/min/1.73 sqM); Potassium 3.8 mmol/L (3.5-5.1); Sodium 141 mmol/L (137-145); Total Bilirubin 0.7 mg/dL (0.2-1.3); Total Protein 8.6 g/dL (6.3-8.2)
[2021-08-23 14:36] LABS: Partial Thromboplastin Time 23.8 sec (22.0-30.0); Prothrombin Time 10.7 sec (9.0-12.0)
[2021-08-23 16:35] VITALS: BP 108/68; PULSE 102
== END 2021-08-23 16:24 | disposition home or self-care (01) ==
LOC: EC 10:34
DX: R11.0 Nausea (principal)
CPT/HCPCS: 99285; 96374; 96375 ×2; 96361; 36415; 93005; 80053; 82150; 83605; 83690; 84484; 85025; 85610; 85730; 81001; 87086; J1200; J2405

== ENCOUNTER → 2021-11-14 | Outpatient (CLI) | payer MEDICARE, OTHER ==
[2021-11-14 10:59] LABS: Basophils # (A) 0.03 X 10*3/uL (0.00-0.10); Basophils % (A) 0.5 %; Eosinophils # (A) 0.28 X 10*3/uL (0.04-0.35); Eosinophils % (A) 4.4 %; HCT 40.8 % (37.2-46.3); HGB 12.7 g/dL (12.0-15.0); Immature Grans, Automated 0.5 %; Lymphocytes # (A) 2.37 X 10*3/uL (0.90-5.00); Lymphocytes % (A) 36.9 %; MCH 29.3 pg (27.0-32.0); MCHC 31.1 g/dL (32.0-37.0); MCV 94.2 fL (80.0-97.0); Mean Platelet Volume 9.7 fL (9.5-12.2); Monocytes # (A) 0.53 X 10*3/uL (0.20-1.00); Monocytes % (A) 8.2 %; NRBC Per 100 WBC 0 /100 WBCS (0.0-0.0); Neutrophils # (A) 3.19 X 10*3/uL (1.80-7.70); Neutrophils % (A) 49.5 %; Platelet Count 277 X 10*3/uL (140-440); RBC 4.33 X 10*6/uL (4.10-5.20); RDW 12.9 % (11.5-14.5); WBC 6.43 X 10*3/uL (4.50-10.00)
[2021-11-14 11:42] LABS: ALT 17 U/L (8-44); AST 15 U/L (13-35); African American GFR (CKD) 108.4 (60.0-200.0); Albumin 4.4 g/dL (3.8-4.9); Albumin/Globulin Ratio 1.69 (1.60-3.17); Alkaline Phosphatase 67 U/L (41-126); BUN/Creat Ratio 22.65 Ratio (12.00-20.00); Blood Urea Nitrogen 16.9 mg/dL (9.0-27.0); Calcium 9.3 mg/dL (8.7-10.3); Carbon Dioxide 24.6 mmol/L (20.0-27.5); Chloride 106 mmol/L (96-109); Chol/HDL Ratio 3.27 Ratio; Globulin 2.6 g/dL (1.6-3.3); Glucose 96 mg/dL (70-110); LDL Cholesterol,Calculated 94.5 mg/dL (0.0-131.0); Non-African American GFR(CKD) 93.5 (60.0-200.0); Potassium 4.2 mmol/L (3.5-5.5); Sodium 142 mmol/L (135-145); Total Bilirubin <0.15 mg/dL (0.30-1.20); VLDL Calculation 18.64 mg/dL (5.00-40.00)
== END | disposition home or self-care (01) ==
LOC: LABWHC1 07:22
PROVIDERS: ATTEND Psychiatry & Neurology Psychiatry
DX: Z79.899 Other long term (current) drug therapy (principal)
CPT/HCPCS: 36415; 80053; 80061; 82306; 83036; 84439; 84443; 85025

== ENCOUNTER → 2022-01-09 | Outpatient (CLI) | payer MEDICARE, OTHER ==
--- NOTE | 2022-01-09 09:34 | MM ---
Reason for Exam: Additional evaluation requested from prior study. Last mammogram was performed 4 year(s) and 0 month(s) ago. Patient History: Menarche at age 14. Risk Values: Vanessa 5 year model risk: 0.7%. NCI Lifetime model risk: 6.5%. Tissue Density: The breast tissue is extremely dense which could obscure a lesion on mammography. Findings: Analyzed By CAD. No significant change from prior exams. Overall Assessment: Incomplete: need additional imaging evaluation, BI-RAD 0 Management: Diagnostic Breast Ultrasound of the right breast. For the clinically suspected cyst. Electronically signed and approved by: Mere Echols M.D. Radiologist
--- NOTE | 2022-01-09 10:10 | USB ---
Reason for Exam: Clinical finding. Patient History: Menarche at age 14. Risk Values: Vanessa 5 year model risk: 0.7%. NCI Lifetime model risk: 6.5%. Technique: Method: Whole Breast Handheld. Prior Study Comparison: 11/05/2013 Bilateral Screening Mammogram, [facility]. 01/26/2017 Bilateral Screening Mammogram, [facility]. 01/30/2018 Bilateral Screening Mammogram, [facility]. Findings: The whole breast of the right breast, the axilla of the right breast and the retroareolar of the right breast were scanned. Whole right breast ultrasound including scanning of the subareolar region and axilla. Dense tissues are present throughout. At the 2:00 position, there is a benign 1.2 cm cyst. A few additional scattered small cysts are present suggesting that the 5:00 and 10:00. No axillary lymphadenopathy. No suspicious solid lesion. Overall Assessment: Benign, BI-RAD 2 Management: Screening Mammogram of both breasts in 1 year. 1. Patient should continue monthly self breast exams. 2. A clinical breast exam by your physician is recommended on an annual basis. 3. This exam should not preclude additional follow-up of suspicious palpable abnormalities. Electronically signed and approved by: Mere Echols M.D. Radiologist
== END | disposition home or self-care (01) ==
LOC: RADMAMWWP 08:55
PROVIDERS: ATTEND Internal Medicine
DX: R92.8 Other abnormal and inconclusive findings on diagnostic imaging of breast (principal)
CPT/HCPCS: 77066; 76641; G0279; 77062

== ENCOUNTER → 2022-09-18 | Outpatient (CLI) | payer MEDICARE, OTHER ==
--- NOTE | 2022-09-18 10:01 | XR ---
EXAMINATION TYPE: XR shoulder complete LT DATE OF EXAM: 09/18/2022 CLINICAL HISTORY: pain COMPARISON: NONE TECHNIQUE: Three views of the left shoulder are obtained. FINDINGS: There is no acute fracture/dislocation evident. The acromioclavicular and glenohumeral tayler int spaces appear within normal limits. The visualized ribs are intact and unremarkable. IMPRESSION: 1. There is no acute fracture or dislocation. ICD 10 NO FRACTURE, INITIAL EVALUATION
== END | disposition home or self-care (01) ==
LOC: RADXRMAIN 09:41
PROVIDERS: ATTEND Internal Medicine
DX: M25.512 Pain in left shoulder (principal)

== ENCOUNTER → 2023-01-10 | Outpatient (CLI) | payer MEDICARE, OTHER ==
--- NOTE | 2023-01-10 12:36 | FL ---
EXAMINATION TYPE: FL barium swallow w video DATE OF EXAM: 01/10/2023 COMPARISON: NONE HISTORY: Dysphagia TECHNIQUE: Fluoroscopy. FINDINGS: Fluoroscopic guidance was provided for the procedure performed in conjunction with the [facility] pathology department. Please see complete report forthcoming from the Speech Pathology departmen t. Various consistencies from thin liquid to solids were administered. Fluoroscopy time 1 minute 30 seconds. Number of images: 0. No aspiration or penetration was evident. No significant pooling was observed in the vallecula. There was normal propulsion of the bolus. IMPRESSION: 1. No aspiration or penetration during the examination. Swallowing mechanism appears within normal li mits.
== END | disposition home or self-care (01) ==
LOC: RADFLMAIN 11:09 → EEVIPCON 01-11 11:00
PROVIDERS: ATTEND Internal Medicine
DX: R13.19 Other dysphagia (principal)
CPT/HCPCS: 74230

== ENCOUNTER 2023-01-12 15:07 | Emergency (ER) | payer MEDICARE, OTHER ==
[2023-01-12 15:21] VITALS: TEMP 98.1
[2023-01-12] MEDS ORDERED: ONDANSETRON 4 MG/2 ML VIAL IVP STA (17:44)
--- NOTE | 2023-01-12 18:04 | ED ---
General Adult HPI - General Chief complaint: Nausea/Vomiting/Diarrhea Stated complaint: Dysphagia, Vomiting Time Seen by Provider: 01/12/23 17:07 Source: patient Mode of arrival: ambulatory Limitations: no limitations - History of Present Illness Initial comments: 52-year-old female with past medical history significant for developmental delay presents to the ED with a chief complaint of difficulty swallowing. Per legal guardian, notes patient has had some difficulty swallowing and had a swallow study on 01/10/23 which was unremarkable. Despite this, states that she has been unable to tolerate oral intake today. Notes that the patient is not com plaining of pain. States that her bowel and bladder habits have been unchanged other than urinating a little less frequently than usual. No other complaints. - Related Data Home Medications Medication Instructions Recorded Confirmed Cholecalciferol [Vitamin D3 (25 50 mcg PO DAILY 04/30/21 08/23/21 Mcg = 1000 Iu)] Cranberry Fruit Extract [Cranberry] 500 mg PO DAILY 06/16/21 08/23/21 DULoxetine HCL [Cymbalta] 30 mg PO DAILY 08/23/21 08/23/21 Mirtazapine [Remeron] 15 mg PO HS 08/23/21 08/23/21 Sennosides [Ex-Lax Chew] 30 mg PO DAILY 08/23/21 08/23/21 Previous Rx's Medication Instructions Recorded Ondansetron Odt [Zofran Odt] 4 mg PO Q8HR PRN #10 tab 08/09/22 Metoclopramide [Reglan] 10 mg PO TID PRN #15 tab 01/12/23 Allergies Allergy/AdvReac Type Severity Reaction Status Date / Time No Known Allergies Allergy Verified 01/12/23 15:21 Review of Systems ROS Statement: Those systems with pertinent positive or pertinent negative responses have been documented in the HPI. ROS Other: All systems not noted in ROS Statement are negative. Past Medical History Additional Past Medical History / Comment(s): mentally handicapped History of Any Multi-Drug Resistant Organisms: None Reported Past Surgical History: No Surgical Hx Reported Past Psychological History: No Psychological Hx Reported Smoking Status: Never smoker Past Alcohol Use History: None Reported Past Drug Use History: None Reported General Exam Limitations: no limitations General appearance: alert, other (Occasionally dry heaves) Eye exam: Present: normal appearance ENT exam: Present: mucous membranes moist, other (Exam limited due to poor command following.) Respiratory exam: Present: normal lung sounds bilaterally Cardiovascular Exam: Present: regular rate, normal rhythm GI/Abdominal exam: Present: soft (Abdomen soft however complains of tenderness upon palpation diffusely.) Neurological exam: Present: alert (Oriented, answers questions somewhat appropriately. Follows commands somewhat appropriately.) Skin exam: Present: warm, dry Course Vital Signs 01/12/23 15:18 Temperature 98.1 F Pulse Rate 119 H Respiratory 16 Rate Blood Pressure 119/61 O2 Sat by Pulse 99 Oximetry Medical Decision Making - Medical Decision Making Was pt. sent in by a medical professional or institution (, [place], [facility], urgent care, hospital, or custodial...) When possible be specific @ -Patient sent in by Dr. Corbin for further evaluation. Did you speak to anyone other than the patient for history (EMS, parent, family, police, friend...)? What history was obtained from this source @ -Spoke to the patient's legal guardian who provided entirety of the history for further details please see HPI. Did you review nursing and triage notes (agree or disagree)? Why? @ -I reviewed and agree with nursing and triage notes Were old charts reviewed (outside hosp., previous admission, EMS record, old EKG, old radiological studies, urgent care reports/EKG's, custodial records)? Report findings @ -Swallow study on 01/10/23 was reviewed which was unremarkable. Differential Diagnosis (chest pain, altered mental status, abdominal pain women, abdominal pain men, vaginal bleeding, weakness, fever, dyspnea, syncope, headache, dizziness, GI bleed, back pain, seizure, CVA, palpatations, mental health, musculoskeletal)? @ -Differential Abdominal Pain Women: Appendicitis, Cholecystitis, diverticulosis, ischemic bowel, pancreatitis, hepatitis, UTI, gastroenteritis, AAA, incarcerated hernia, bowel obstruction, constipation, inflammatory bowel, hepatitis, peptic ulcer disease, splenic infarction, perforated viscus, vulvitis, ovarian torsion, PID, kidney stone, placenta abruption, this is not meant to be an all-inclusive list EKG interpreted by me (3pts min.). @ -As above X-rays interpreted by me (1pt min.). @ -None done CT interpreted by me (1pt min.). @ -None done U/S interpreted by me (1pt. min.). @ -None done What testing was considered but not performed or refused? (CT, X-rays, U/S, labs)? Why? @ -None What meds were considered but not given or refused? Why? @ -None Did you discuss the management of the patient with other professionals (professionals i.e. , MONTY, [facility]IER, lab, RT, psych nurse, health and social care teacher, splash line operator, teacher, chief mechanical officer, case packer)? Give summary @ -No Was smoking cessation discussed for >3mins.? @ -No Was critical care preformed (if so, how long)? @ -No Were there social determinants of health that impacted care today? How? (Homelessness, low income, unemployed, alcoholism, drug addiction, transportation, low edu. Level, literacy, decrease access to med. care, care home, rehab)? @ -No Was there de-escalation of care discussed even if they declined (Discuss DNR or withdrawal of care, Hospice)? DNR status @ -No What co-morbidities impacted this encounter? (DM, HTN, Smoking, COPD, CAD, Cancer, CVA, ARF, Chemo, Hep., AIDS, mental health diagnosis, sleep apnea, morbid obesity)? @ -Developmental delay Was patient admitted / discharged? Hospital course, mention meds given and route, prescriptions, significant lab abnormalities, going to OR and other pertinent info. @ -Discharge. Laboratory studies here are unremarkable. Imaging studies here unremarkable. Patient able to tolerate frozen sherbet, chocolate pudding, and drink water without significant difficulty. Provided prescription for Reglan and discharged home in stable condition. Discussed return precautions with monty skyealdo's mother Undiagnosed new problem with uncertain prognosis? @ -No Drug Therapy requiring intensive monitoring for toxicity (Heparin, Nitro, Insulin, Cardizem)? @ -No Were any procedures done? @ -No Diagnosis/symptom? @ -Nausea and vomiting Acute, or Chronic, or Acute on Chronic? @ -Acute Uncomplicated (without systemic symptoms) or Complicated (systemic symptoms)? @ -Uncomplicated Side effects of treatment? @ -No Exacerbation, Progression, or Severe Exacerbation? @ -No Poses a threat to life or bodily function? How? (Chest pain, [place], [place], pneumonia, PE, COPD, DKA, ARF, appy, cholecystitis, CVA, Diverticulitis, Homicidal, Suicidal, threat to staff... and all critical care pts) @ -No - Lab Data Result diagrams: 01/12/23 18:48 01/12/23 18:48 Lab Results 01/12/23 01/12/23 01/12/23 Range/Units 18:48 18:48 18:48 WBC 6.1 (3.8-10.6) k/uL RBC 4.56 (3.80-5.40) m/uL Hgb 13.7 (11.4-16.0) gm/dL Hct 40.7 (34.0-46.0) % MCV 89.4 (80.0-100.0) fL MCH 30.1 (25.0-35.0) pg MCHC 33.7 (31.0-37.0) g/dL RDW 12.7 (11.5-15.5) % Plt Count 268 (150-450) k/uL MPV 7.7 Neutrophils % 64 % Lymphocytes % 28 % Monocytes % 4 % Eosinophils % 2 % Basophils % 0 % Neutrophils # 3.9 (1.3-7.7) k/uL Lymphocytes # 1.7 (1.0-4.8) k/uL Monocytes # 0.3 (0-1.0) k/uL Eosinophils # 0.1 (0-0.7) k/uL Basophils # 0.0 (0-0.2) k/uL Sodium 139 (137-145) mmol/L Potassium 4.8 (3.5-5.1) mmol/L Chloride 106 (98-107) mmol/L Carbon Dioxide 16 L (22-30) mmol/L Anion Gap 17 mmol/L BUN 10 (7-17) mg/dL Creatinine 0.65 (0.52-1.04) mg/dL Est GFR (CKD-EPI)AfAm >90 (>60 ml/min/1.73 sqM) Est GFR (CKD-EPI)NonAf >90 (>60 ml/min/1.73 sqM) Glucose 86 (74-99) mg/dL Calcium 9.7 (8.4-10.2) mg/dL Total Bilirubin 0.8 (0.2-1.3) mg/dL AST 32 (14-36) U/L ALT 21 (4-34) U/L Alkaline Phosphatase 68 (38-126) U/L Total Protein 8.3 H (6.3-8.2) g/dL Albumin 4.9 (3.5-5.0) g/dL Amylase 44 (30-110) U/L Lipase 73 (23-300) U/L Urine Color Yellow Urine Appearance Clear (Clear) Urine pH 5.5 (5.0-8.0) Ur Specific [place] 1.027 (1.001-1.035) Urine Protein 1+ H (Negative) Urine Glucose (UA) Negative (Negative) Urine Ketones 4+ H (Negative) Urine Blood Trace H (Negative) Urine Nitrite Negative (Negative) Urine Bilirubin 1+ H (Negative) Urine Urobilinogen 2.0 (<2.0) mg/dL Ur Leukocyte Esterase Negative (Negative) Urine RBC 1 (0-5) /hpf Urine WBC 4 (0-5) /hpf Ur Squamous Epith Cells 1 (0-4) /hpf Urine Mucus Many H (None) /hpf Urine HCG, Qual (Not Detectd) 01/12/23 Range/Units 18:48 WBC (3.8-10.6) k/uL RBC (3.80-5.40) m/uL Hgb (11.4-16.0) gm/dL Hct (34.0-46.0) % MCV (80.0-100.0) fL MCH (25.0-35.0) pg MCHC (31.0-37.0) g/dL RDW (11.5-15.5) % Plt Count (150-450) k/uL MPV Neutrophils % % Lymphocytes % % Monocytes % % Eosinophils % % Basophils % % Neutrophils # (1.3-7.7) k/uL Lymphocytes # (1.0-4.8) k/uL Monocytes # (0-1.0) k/uL Eosinophils # (0-0.7) k/uL Basophils # (0-0.2) k/uL Sodium (137-145) mmol/L Potassium (3.5-5.1) mmol/L Chloride (98-107) mmol/L Carbon Dioxide (22-30) mmol/L Anion Gap mmol/L BUN (7-17) mg/dL Creatinine (0.52-1.04) mg/dL Est GFR (CKD-EPI)AfAm (>60 ml/min/1.73 sqM) Est GFR (CKD-EPI)NonAf (>60 ml/min/1.73 sqM) Glucose (74-99) mg/dL Calcium (8.4-10.2) mg/dL Total Bilirubin (0.2-1.3) mg/dL AST (14-36) U/L ALT (4-34) U/L Alkaline Phosphatase (38-126) U/L Total Protein (6.3-8.2) g/dL Albumin (3.5-5.0) g/dL Amylase (30-110) U/L Lipase (23-300) U/L Urine Color Urine Appearance (Clear) Urine pH (5.0-8.0) Ur Specific [place] (1.001-1.035) Urine Protein (Negative) Urine Glucose (UA) (Negative) Urine Ketones (Negative) Urine Blood (Negative) Urine Nitrite (Negative) Urine Bilirubin (Negative) Urine Urobilinogen (<2.0) mg/dL Ur Leukocyte Esterase (Negative) Urine RBC (0-5) /hpf Urine WBC (0-5) /hpf Ur Squamous Epith Cells (0-4) /hpf Urine Mucus (None) /hpf Urine HCG, Qual Not Detected (Not Detectd) Disposition Clinical Impression: Nausea & vomiting Disposition: HOME SELF-CARE Condition: Good Instructions (If sedation given, give patient instructions): Acute Nausea and V omiting (ED) Additional Instructions: Please return to the Emergency Department if symptoms worsen or any other concerns. Prescriptions: Metoclopramide [Reglan] 10 mg PO TID PRN #15 tab PRN Reason: Nausea Is patient prescribed a controlled substance at d/c from ED?: No Referrals: Dmitry Juárez MD [Primary Care Provider] - 1-2 days Time of Disposition: 22:10
[2023-01-12 18:55] LABS: Basophils % (A) 0 %; Eosinophils # (A) 0.1 k/uL (0-0.7); Eosinophils % (A) 2 %; HCT 40.7 % (34.0-46.0); HGB 13.7 gm/dL (11.4-16.0); Lymphocytes # (A) 1.7 k/uL (1.0-4.8); Lymphocytes % (A) 28 %; MCH 30.1 pg (25.0-35.0); MCHC 33.7 g/dL (31.0-37.0); MCV 89.4 fL (80.0-100.0); Mean Platelet Volume 7.7; Monocytes # (A) 0.3 k/uL (0-1.0); Monocytes % (A) 4 %; Neutrophils # (A) 3.9 k/uL (1.3-7.7); Neutrophils % (A) 64 %; Platelet Count 268 k/uL (150-450); RBC 4.56 m/uL (3.80-5.40); RDW 12.7 % (11.5-15.5); WBC 6.1 k/uL (3.8-10.6)
[2023-01-12 19:06] LABS: Appearance,Urine Clear (Clear); Bilirubin,Urine 1+ (Negative); Blood,Urine Trace (Negative); Color,Urine Yellow; Glucose,Urine (UA) Negative (Negative); Ketones,Urine 4+ (Negative); Leukocyte Esterase,Urine Negative (Negative); Mucus,Urine Many /hpf; Nitrite,Urine Negative (Negative); PH, Urine 5.5 (5.0-8.0); Protein,Urine 1+ (Negative); RBC,Urine 1 /hpf (0-5); Specific Gravity,Urine 1.027 (1.001-1.035); Squamous Epithelial Cell,Urine 1 /hpf (0-4); WBC,Urine 4 /hpf (0-5)
[2023-01-12 19:10] LABS: ALT 21 U/L (4-34); AST 32 U/L (14-36); African American GFR (CKD) >90 (>60 ml/min/1.73 sqM); Albumin 4.9 g/dL (3.5-5.0); Alkaline Phosphatase 68 U/L (38-126); Amylase 44 U/L (30-110); Anion Gap 17 mmol/L; Blood Urea Nitrogen 10 mg/dL (7-17); Calcium 9.7 mg/dL (8.4-10.2); Carbon Dioxide 16 mmol/L (22-30); Chloride 106 mmol/L (98-107); Glucose 86 mg/dL (74-99); Lipase 73 U/L (23-300); Non-African American GFR(CKD) >90 (>60 ml/min/1.73 sqM); Sodium 139 mmol/L (137-145); Total Bilirubin 0.8 mg/dL (0.2-1.3); Total Protein 8.3 g/dL (6.3-8.2)
[2023-01-12 19:12] LABS: Potassium 4.8 mmol/L (3.5-5.1)
--- NOTE | 2023-01-12 20:41 | CT ---
EXAMINATION TYPE: CT neck chest without con DATE OF EXAM: 01/12/2023 COMPARISON: None HISTORY: vomiting CT DLP: 549.5 mGycm CONTRAST: Patient injected with 0 mL of Isovue 300. TECHNIQUE: Axial images at 3 mm thick sections. Reconstructed images in the coronal plane and sagitt al plane are reviewed. FINDINGS: CT neck: The torus tubarius and fossa of Rosenmuller are normal. Ice Cream Scooper spaces are normal. Visu alized Paranasal sinuses and mastoid air cells are clear. Parotid glands appear normal and symmetrical. Submandibular glands, are normal. Parapharyngeal spac es are normal. No suspicious adenopathy is evident. The hypopharynx appears within normal limits. Vocal cord level appear symmetrical. Thyroid as visualized is normal. Osseous structures are normal. There is straightening of the cervical spine. Degenerative disc change s present within the mid to lower cervical spine. Posterior vertebral body spurring is present at C6- 7. IMPRESSIONS: 1. Soft tissue CT neck unremarkable EXAMINATION TYPE: CT neck chest without con DATE OF EXAM: 01/12/2023 COMPARISON: None HISTORY: vomiting CT DLP: 549.5 mGycm, Automated exposure control for dose reduction was used. CONTRAST: Performed injected with 0 mL of Isovue 300. TECHNIQUE: Axial images were obtained at 5 mm thick sections. Reconstructed images are reviewed on Rad computer in the coronal plane. FINDINGS: Thyroid is visualized appears normal. No suspicious lung nodules or focal infiltrates are present. No enlarged mediastinal or hilar adenopathy is evident. The ascending aorta diameter at the level o f the main pulmonary artery is 3.4 cm. The main pulmonary artery diameter at the bifurcation is 3.[address] sections are obtained through the upper abdomen. See CT abdomen separate dictation IMPRESSIONS: 1. No acute abnormality CT soft tissue neck. 2. No acute pulmonary process CT chest
[2023-01-12] MEDS ORDERED: SODIUM CHLORIDE 0.9% 1,000 ML IV STA (21:28)
--- NOTE | 2023-01-12 21:33 | CT ---
EXAMINATION TYPE: CT abdomen wo con DATE OF EXAM: 01/12/2023 COMPARISON: INDICATION: vomiting DLP: 267 mGycm, Automated exposure control for dose reduction was used. CONTRAST: 0 mL of Isovue 300. Study performed without Oral Contrast TECHNIQUE: Axial images were obtained from above the diaphragm to the pubic rami in the axial plane a t 5 mm thick sections. Reconstructed images are reviewed on the computer in the coronal plane. FINDINGS: Limited CT sections are obtained the lung bases. See CT chest report same date. CT ABDOMEN: Liver: There is a 1.6 cm cyst in the mid right lobe liver. Additional 0.7 and 0.8 cm cyst on the more inferior right lobe liver. Small posterior hepatic cyst measures 0.6 cm. Spleen: Normal Pancreas: Normal Adrenal glands: The adrenal glands are normal. Gallbladder: Surgically absent Kidneys: No masses are evident. No hydronephrosis is present. No cysts are present. No renal stone s are evident Aorta: Vascular calcification is within the aorta. Inferior vena cava: Normal. Loops of bowel within the abdomen and pelvis are normal. There are loops of bowel which are incom pletely distended or lack oral contrast limiting their evaluation. Appendix: Normal as visualized. IMPRESSIONS: 1. No suspicious bowel abnormality noted
[2023-01-12] MEDS ORDERED: ONDANSETRON 4 MG ODT STARTER PACK 2 TAB BTL PO STA (22:49)
[2023-01-12 22:52] VITALS: BP 116/72; PULSE 117; RESP 18
== END 2023-01-12 22:51 | disposition home or self-care (01) ==
LOC: EEVIPCON 15:07 → EC 15:07
DX: R11.2 Nausea with vomiting, unspecified (principal); R13.10 Dysphagia, unspecified
CPT/HCPCS: 36415; 80053; 82150; 83690; 85025; 81001; 81025; 70490; 71250; 74150; 99284; 96374; 96375; 96361; J3360; J2405; S0119

== ENCOUNTER → 2023-01-31 | Outpatient (CLI) | payer MEDICARE, OTHER ==
--- NOTE | 2023-02-01 08:39 | MM ---
Reason for Exam: Screening (asymptomatic). Last screening mammogram was performed 12 month(s) ago. Patient History: Menarche at age 14. Risk Values: Vanessa 5 year model risk: 0.7%. NCI Lifetime model risk: 6.4%. Prior Study Comparison: 01/26/2017 Bilateral Screening Mammogram, [facility]. 01/30/2018 Bilateral Screening Mammogram, [facility]. 01/09/2022 Bilateral MG 3D diag mammo w/cad RUBA, [facility]. Tissue Density: The breast tissue is extremely dense which could obscure a lesion on mammography. Findings: Analyzed By CAD. There is no suspicious group of microcalcifications or new suspicious mass in either breast. Overall Assessment: Negative, BI-RAD 1 Management: Screening Mammogram of both breasts in 1 year. A clinical breast exam by your physician is recommended on an annual basis and results should be correlated with mammographic findings. Note on Vanessa scores and lifetime risk: 1. A Vanessa score greater than 3% is considered moderate risk. If this is the case, consider specialist referral to assess eligibility for a risk reducing agent. If overall lifetime risk for the development of breast cancer is 20% or higher, the patient may qualify for future screening with alternating mammogram and breast MRI. Electronically signed and approved by: Brooks Dukes D.O.
--- NOTE | 2023-02-01 12:16 | US ---
EXAMINATION TYPE: US pelvic complete DATE OF EXAM: 01/31/2023 COMPARISON: CT abdomen pelvis 06/16/2021 CLINICAL INDICATION: Female, 52 years old with history of N83.209 UNSPECIFIED OVARIAN CYST, UNSPECIFI ED SIDE; TECHNIQUE: Transabdominal sonographic images of the pelvis were acquired. EXAM MEASUREMENTS: Uterus: 5.8 x 2.7 x 3.1 cm Endometrial Stripe: Poorly defined Right Ovary: Not visualized due to overlying bowel gas. Left Ovary: Not visualized due to overlying bowel gas. 1. Uterus: Anteverted heterogenous echotexture. 2. Endometrium: Poorly visualized 3. Right Ovary: Obscured by overlying bowel gas 4. Left Ovary: Obscured by overlying bowel gas 5. Bilateral Adnexa: Obscured by overlying bowel gas 6. Posterior cul-de-sac: wnl IMPRESSION: Limited examination. 1. Heterogenous appearance of the uterus which can be seen with fibroid changes versus adenomyosis. Nonvisualization of the endometrium due to heterogeneity. 2. Nonvisualization of both ovaries due to overlying bowel gas.
== END | disposition home or self-care (01) ==
LOC: RADUSWWP 15:32
PROVIDERS: ATTEND Internal Medicine
DX: Z12.31 Encounter for screening mammogram for malignant neoplasm of breast (principal); N83.209 Unspecified ovarian cyst, unspecified side
CPT/HCPCS: 76856; 77063; 77067

== ENCOUNTER → 2024-04-01 | Outpatient (CLI) | payer MEDICARE, OTHER ==
--- NOTE | 2024-04-01 10:32 | XR ---
EXAMINATION TYPE: XR knee 4V LT DATE OF EXAM: 04/01/2024 CLINICAL HISTORY: pain TECHNIQUE: Three views of the left knee are obtained. Patellar sunrise views obtained. COMPARISON: None. FINDINGS: There is no acute fracture/dislocation. The tri-compartment joint spaces appear within no rmal limits. The overlying soft tissue appears unremarkable. IMPRESSION: There is no acute fracture or dislocation ICD 10 NO FRACTURE, INITIAL EVALUATION [facility], , 04/01/2024 10:30 AM
[2024-04-01 12:32] LABS: Basophils % (A) 1 %; Eosinophils # (A) 0.2 k/uL (0-0.7); Eosinophils % (A) 3 %; HGB 13.6 gm/dL (11.4-16.0); Lymphocytes # (A) 1.9 k/uL (1.0-4.8); Lymphocytes % (A) 32 %; MCH 30.4 pg (25.0-35.0); MCHC 31.7 g/dL (31.0-37.0); Mean Platelet Volume 7.6; Monocytes # (A) 0.3 k/uL (0-1.0); Monocytes % (A) 5 %; Neutrophils # (A) 3.3 k/uL (1.3-7.7); Neutrophils % (A) 57 %; Platelet Count 270 k/uL (150-450); RBC 4.48 m/uL (3.80-5.40); RDW 12.9 % (11.5-15.5); WBC 5.8 k/uL (3.8-10.6)
[2024-04-01 16:13] LABS: Hepatitis C IgG Antibody Nonreactive (Nonreactive)
[2024-04-01 17:01] LABS: RBC Morphology Normal
[2024-04-01 17:44] LABS: HIV 2 AB Non-Reactive (Non-Reactive); HIV AB P24 Non-Reactive (Non-Reactive); HIV P24 AG Non-Reactive (Non-Reactive)
[2024-04-01 19:03] LABS: ALT 24 U/L (8-44); AST 21 U/L (13-35); Albumin 4.7 g/dL (3.8-4.9); Albumin/Globulin Ratio 1.81 Ratio (1.60-3.17); Alkaline Phosphatase 76 U/L (41-126); BUN/Creat Ratio 27.75 Ratio (12.00-20.00); Blood Urea Nitrogen 22.2 mg/dL (9.0-27.0); Calcium 9.5 mg/dL (8.7-10.3); Carbon Dioxide 19.3 mmol/L (21.6-31.8); Chloride 108 mmol/L (96-109); Chol/HDL Ratio 3.19 Ratio; Globulin 2.6 g/dL (1.6-3.3); Glucose 94 mg/dL (70-110); LDL Cholesterol,Calculated 112.5 mg/dL (0.0-131.0); Potassium 4.4 mmol/L (3.5-5.5); Sodium 143 mmol/L (135-145); Total Bilirubin <0.2 mg/dL (0.3-1.2); Total Protein 7.3 g/dL (6.2-8.2); VLDL Calculation 16.52 mg/dL (5.00-40.00)
== END ==
LOC: LABWHC1 09:48
PROVIDERS: ATTEND Internal Medicine
CPT/HCPCS: 36415; 80053; 80061; 84165; 84443; 85025; 86803; 87390

== ENCOUNTER → 2024-04-15 | Outpatient (CLI) | payer MEDICARE, OTHER ==
[2024-04-15 13:34] LABS: African American GFR (CKD) >90 (>60 ml/min/1.73 sqM); Blood Urea Nitrogen 28 mg/dL (7-17); Non-African American GFR(CKD) >90 (>60 ml/min/1.73 sqM)
--- NOTE | 2024-04-15 14:30 | CT ---
EXAMINATION TYPE: CT ChestAbdPelvis w con CT DLP: 965 mGycm, Automated exposure control for dose reduction was used. DATE OF EXAM: 04/15/2024 1:24 PM COMPARISON: CT neck chest 01/12/2023, CT abdomen 01/12/2023, CT abdomen and pelvis 08/18/2019 CLINICAL INDICATION:Female, 54 years old with history of R63.4 Abnormal weight loss; [facility], Technique: Multiple axial images of the chest, abdomen, and pelvis were obtained following the intrav enous administration of 100 mL Isovue-300. Oral contrast was administered. Two-dimensional coronal an d sagittal reconstructions were obtained. Findings: CHEST: LUNGS/ PLEURA: No pleural effusion, pneumothorax, or focal consolidation. No suspicious pulmonary nod ule or mass. AIRWAY: Patent and unremarkable.. HEART: Size within normal limits. No pericardial effusion. MEDIASTINUM: No evidence of adenopathy. VASCULATURE: No aortic aneurysm. MUSCULOSKELETAL: No acute osseous abnormalities. SOFT TISSUES/LYMPH NODES: Unremarkable. LOWER NECK: No significant findings. ABDOMEN: ABDOMEN LIVER: A few hepatic cysts with largest measuring up to 1.9 cm. GALLBLADDER AND BILE DUCTS: Unremarkable. PANCREAS: Unremarkable. SPLEEN: Unremarkable. ADRENAL GLANDS: Unremarkable. KIDNEYS AND URETERS: No evidence of hydronephrosis or renal calculus. The kidneys enhance symmetrical ly. Contrast is demonstrated within both collecting systems on the delayed phase. Subcentimeter right renal cyst. PELVIS BLADDER: Unremarkable REPRODUCTIVE: Unremarkable. ABDOMEN & PELVIS STOMACH AND BOWEL: Mild gastric distention. No focal bowel wall thickening or surrounding inflammator y changes. Enteric contrast reaches the sigmoid colon. Distal colonic diverticulosis without evidence for acute diverticulitis. Rectal fecaloma measured 6.3 cm. No surrounding inflammatory changes. The appendix is within normal limits. No evidence of bowel obstruction. PERITONEUM: No evidence of pneumoperitoneum or free fluid. VASCULATURE: No evidence of aortic aneurysm. MUSCULOSKELETAL: No acute osseous abnormalities. Benign vertebral hemangioma involving the L2 vertebr al body. LYMPH NODES: No evidence for lymphadenopathy. SOFT TISSUE/ABDOMINAL WALL: Unremarkable IMPRESSION: 1. No CT evidence to explain patient's symptomology. 2. Rectal fecaloma without evidence for stercoral colitis. 3. Distal colonic diverticulosis without evidence for acute diverticulitis. [facility], , 04/15/2024 2:28 PM
== END | disposition home or self-care (01) ==
LOC: RADCTMAIN 10:50
PROVIDERS: ATTEND Internal Medicine
DX: K57.30 Diverticulosis of large intestine without perforation or abscess without bleeding (principal); N28.1 Cyst of kidney, acquired; K76.89 Other specified diseases of liver; R63.4 Abnormal weight loss
CPT/HCPCS: 82565; 84520; 86334; 71260; 74177; Q9967

== ENCOUNTER → 2024-12-15 | Outpatient (CLI) | payer MEDICARE, OTHER ==
[2024-12-15 15:32] LABS: ALT 24 U/L (8-44); AST 21 U/L (13-35); Albumin 4.8 g/dL (3.8-4.9); Albumin/Globulin Ratio 1.55 Ratio (1.60-3.17); Alkaline Phosphatase 83 U/L (41-126); Anion Gap 12.40 mmol/L (4.00-12.00); BUN/Creat Ratio 19.25 Ratio (12.00-20.00); Blood Urea Nitrogen 15.4 mg/dL (9.0-27.0); Calcium 9.9 mg/dL (8.7-10.3); Carbon Dioxide 24.6 mmol/L (21.6-31.8); Chloride 105 mmol/L (96-109); Globulin 3.1 g/dL (1.6-3.3); Glucose 90 mg/dL (70-110); Potassium 4.3 mmol/L (3.5-5.5); Sodium 142 mmol/L (135-145); Total Protein 7.9 g/dL (6.2-8.2)
[2024-12-15 16:13] LABS: Basophils # (A) 0.05 X 10*3/uL (0.00-0.10); Basophils % (A) 0.9 %; Eosinophils # (A) 0.13 X 10*3/uL (0.04-0.35); Eosinophils % (A) 2.2 %; HCT 43.0 % (37.2-46.3); HGB 13.6 g/dL (12.0-15.0); Immature Grans, Automated 0.20 %; Lymphocytes # (A) 1.93 X 10*3/uL (0.90-5.00); Lymphocytes % (A) 33.1 %; MCH 29.3 pg (27.0-32.0); MCHC 31.6 g/dL (32.0-37.0); MCV 92.7 FL (80.0-97.0); Monocytes # (A) 0.32 X 10*3/uL (0.20-1.00); Monocytes % (A) 5.5 %; NRBC Per 100 WBC 0 X 10*3/uL (0.00-0.01); Neutrophils # (A) 3.39 X 10*3/uL (1.80-7.70); Neutrophils % (A) 58.1 %; Platelet Count 272 X 10*3/uL (140-440); RBC 4.64 X 10*6/uL (4.10-5.20); RDW 12.5 % (11.5-14.5); WBC 5.83 X 10*3/uL (4.50-10.00)
[2024-12-16 12:04] LABS: Free Kappa Lt Chain Qnt, Serum 1.30 mg/dL (0.33-1.94); Free Lambda Lt Chain Qnt, Seru 1.24 mg/dL (0.57-2.63)
== END | disposition home or self-care (01) ==
LOC: LABWHC1 11:49
PROVIDERS: ATTEND Internal Medicine Hematology & Oncology
DX: D47.2 Monoclonal gammopathy (principal)
CPT/HCPCS: 36415; 80053; 83883; 84165; 85025; 86334